=== PATIENT | male | born 1945 | race Asian ===

== ENCOUNTER 2020-08-31 10:18 | Inpatient (IN) ==
--- NOTE | 2020-08-27 15:10 | Anesthesiology Consultation ---
Date of Service August 27, 2020 Assessment & Plan (1) Encounter for pre-operative examination: Chart Review Chart Review: Acceptable Risk for Surgery and Patient NOT seen in Pre Admission Testing Per nursing assessment 08/27/2020, patient denies any recent travel. No known Covid infection in the past 90 days. Patient is vaccinated for Covid. No known Covid positive contacts or Covid related symptoms. Covid test 08/27/20= negative History Surgery Operation Date: 08/31/20 12:20 Proposed Procedures p Cystolithotomy ( Bladder Stone Fragmentation and Removal ) - Omar Muñoz MD Height/Weight Height: 5 ft 3 in Weight: 65.771 kg Allergies Allergy/AdvReac Type Severity Reaction Status Date / Time sulfamethoxazole AdvReac Unknown Heavy chest Verified 08/27/20 14:20 [From Bactrim] trimethoprim [From Bactrim] AdvReac Unknown Heavy chest Verified 08/31/20 10:44 Medications Home Medications Medication Instructions Recorded Confirmed Last Taken fgrwffwzeuif-jfpm-umlxv acid 1 tab PO QAM 01/13/19 08/31/20 08/30/20 13:00 [Centrum Complete] tamsulosin 0.4 mg capsule 0.4 mg PO HS #90 cap 07/13/20 08/31/20 08/30/20 20:00 finasteride 5 mg PO 1300 08/27/20 08/31/20 08/30/20 13:00 Active Medications Generic Name Dose Route Start Last Admin Trade Name Freq PRN Reason Stop Dose Admin Lactated Ringer's 1,000 mls @ 15 mls/hr 08/31/20 06:00 08/31/20 11:19 Lr IV 09/01/20 05:59 15 mls/hr .Q24H KAYDEN Administration Past Medical History Medical History Bladder stone CKD (chronic kidney disease) per record Enlarged prostate Past Family History Family History Other No family history of adverse response to anesthesia No pertinent family history Denies family history of Ovarian cancer Prostate cancer Breast cancer Lung cancer Colorectal cancer Past Surgical History Surgical History History of cataract surgery Social History Smoking Status: Never smoker Do You Dip or Chew Tobacco: No Hx Alcohol Use: No Hx Substance Use: No substance use type: does not use Physical Exam Vital Signs Last Vital Signs Temp 36.7 C 08/31/20 10:56 Pulse 84 08/31/20 10:56 Resp 20 08/31/20 10:56 BP 143/101 H 08/31/20 10:56 Pulse Ox 97 08/31/20 10:56 Lab Results Anesthesia Preop Results Results Anesthesia Widget: WBC 6.49 K/uL (4.8-10.8) 08/27/20 Hgb 12.9 g/dL (14.0-18.0) L 08/27/20 Hct 38.7 % (42-52) L 08/27/20 Plt 196 K/uL (130-400) 08/27/20 Na 141 mmol/L (136-145) 08/27/20 K 3.4 mmol/L (3.5-5.1) L 08/27/20 Cl 111 mmol/L (98-107) H 08/27/20 CO2 26 mmol/L (21-32) 08/27/20 BUN 24 mg/dl (7-18) H 08/27/20 Creat 1.14 mg/dl (0.6-1.4) 08/27/20 Glucose Level 96 mg/dl (70-99) 08/27/20 SARS-CoV-2, RNA, NAAT NEGATIVE (NEGATIVE) 08/31/20 Testing Laboratory Results 08/27/20= URINE CULTURE: Three types of organisms present, all low counts probable skin caren. Electrocardiogram Date: 08/27/20 Findings: + NSR @ (76bpm) Normal EKG per cardio Chest X-Ray Date: 08/27/20 Findings: + NAD The cardiac silhouette is top normal in size. This remains unchanged. A few linear densities within the lingula favor scarring or subsegmental atelectasis. Otherwise, no focal lung consolidations to suggest pneumonia. No evidence for pulmonary edema. No pleural effusions. No pneumothorax. A mildly tortuous thoracic aorta, unchanged.
[~2020-08-31 10:18] MED LIST: CIPROFLOXACIN / D5W 400 MG/200 ML BAG IV SCH; LR 15ML/HR IV SCH
[2020-08-31] MEDS ORDERED: fentaNYL citrate 100 MCG/2 ML VIAL ONE ×2 (12:03→13:30)
[2020-08-31] MEDS ORDERED: MIDAZOLAM HCL 1 MG/ML 2ML VIAL ONE (12:03)
[2020-08-31] MEDS ORDERED: LIDOCAINE 2% 2 ML VIAL/AMP(20MG/ML) INFIL ONE ×4 (12:03→12:21)
[2020-08-31] MEDS ORDERED: PROPOFOL IV EMULSION 10 MG/ML 20 ML VIAL IV ONE ×2 (12:04→12:21)
[2020-08-31] MEDS ORDERED: ONDANSETRON INJ 2 MG/ML 2 ML VIAL ONE ×2 (12:04→12:21)
[2020-08-31] MEDS ORDERED: ATROPINE SULFATE 0.1 MG/ML 10ML SYR IV PRN (12:38)
[2020-08-31] MEDS ORDERED: ONDANSETRON INJ 2 MG/ML 2 ML VIAL IV PRN (12:38)
[2020-08-31] MEDS ORDERED: LABETALOL HCL IV 5 MG/ML 20ML IV PRN (12:38)
[2020-08-31] MEDS ORDERED: fentaNYL citrate 100 MCG/2 ML VIAL IV PRN (12:38)
--- NOTE | 2020-08-31 12:45 | History & Physical Report ---
Date of Service August 31, 2020 Assessment & Plan (1) Bladder stone: 25+ bladder calculi - plan for open lithalopaxy today - overnight stay in the hospital - will keep a catheter x 10days - risks, benefits, and expectations reviewed History of Present Illness Primary Care Provider: Tian Bonilla DO 74y/o male w/ 25+ bladder calculi and severe voiding dysfunction - BPH is the underlying cause of the issues, but he presents to the hospital today for open lithalopaxy - likely will require a second surgery (TURP) in the future to complete the treatment of his voidin dysfunction Allergies Allergy/AdvReac Type Severity Reaction Status Date / Time sulfamethoxazole AdvReac Unknown Heavy chest Verified 08/27/20 14:20 [From Bactrim] trimethoprim [From Bactrim] AdvReac Unknown Heavy chest Verified 08/31/20 10:44 Home Medications Medication Instructions Recorded Confirmed Type fgozzapkaoda-olay-lwlpg acid 1 tab PO QAM 01/13/19 08/31/20 History [Centrum Complete] tamsulosin 0.4 mg capsule 0.4 mg PO HS #90 cap 07/13/20 08/31/20 Rx finasteride 5 mg PO 1300 08/27/20 08/31/20 History Past Med/Surg History Medical History Bladder stone CKD (chronic kidney disease) per record Enlarged prostate Surgical History History of cataract surgery Family History Other No family history of adverse response to anesthesia No pertinent family history Denies family history of Ovarian cancer Prostate cancer Breast cancer Lung cancer Colorectal cancer Social History Smoking Status: Never smoker Second Hand Exposure: No; Do You Dip or Chew Tobacco: No; Hx Alcohol Use: No Hx Substance Use: No Preferred Language: Georgian Communication Ability: Effective Visual Impairment: Limited Hearing Ability: Normal Machine Try Out Setter Required: No Beliefs That Will Affect Care: None marital status: Current Living Situation: Spouse current occupational status: retired Feels Safe at Home: Yes Safety Concerns: Feels Safe At This Time Childhood Exposure to Second-Hand Smoke: No caffeine: No Dental Care, Regularly: No Physical Activity Frequency: Does not Exercise Seatbelt Use: always Sunscreen Use: No Assistive Devices: Glasses Physical Exam Constitutional: well developed and well nourished Neck: neck nontender Respiratory: normal respiratory effort; no respiratory distress and does not use accessory muscles Cardiovascular: Rate/Rhythm: regular rate Vessels: radial pulses present Extremities: no edema Gastrointestinal (Abdomen): Inspection/Auscultation: abdomen normal to inspection Percussion/Palpation: abdomen soft; abdomen nontender and no guarding Musculoskeletal: Head/Neck/Chest: normocephalic and head atraumatic Extremities: extremities normal to inspection Skin: no rashes and no lesions Trauma: no evidence of skin trauma Neurologic: awake; not obtunded Speech / Cognition: normal speech Motor/Sensory: no tremor Psychiatric: Orientation: alert and oriented x 3 Genitourinary: no CVA tenderness Lymphatic: no lymphadenopathy Results & Data ([facility]) Vital Signs (Past 12 Hours) Vital Signs Temp Pulse Resp BP Pulse Ox 08/31/20 10:56 36.7 C 84 20 143/101 H 97
[2020-08-31] MEDS ORDERED: BUPIVACAINE 0.5 % 5 MG/1 ML MPF 30ML VIAL ONE (12:47)
[2020-08-31] MEDS ORDERED: DEXAMETHASONE SOD INJ 4 MG/ML VIAL ONE (13:30)
[2020-08-31] MEDS ORDERED: GLYCOPYRROLATE 0.2 MG/ML VIAL ONE ×2 (14:03→14:04)
[2020-08-31] MEDS ORDERED: NEOSTIGMINE METHYLSULFATE 1 MG/ML 10ML VIAL ONE (14:03)
--- NOTE | 2020-08-31 14:50 | Operative Report ---
PG Post Operative Report Pre & Post Diagnosis Operation Date: 08/31/20 12:20 Pre-Op Diagnosis: Bladder Stone Post-Op Diagnosis: Bladder Stone I identified the patient and participated in the time-out.: Yes Procedure Operation Date: 08/31/20 12:20 Actual Procedures p Open Lithalopaxy(Not Applicable) - Omar Muñoz MD Surgeon Bebo Muñoz MD Chainstitch Pants Outseamer Bella Phoenix Estimated Blood Loss 15 Findings Consistent with Post-Op Diagnosis Specimens bladder calculi Description of Procedure Patient was identified in the preoperative holding area, appropriate informed consents reviewed and completed and he was transported to the operating suite. Upon arrival received appropriate preoperative antibiotics in the form of Cipro. Adequate general anesthesia was achieved and he was placed in supine position where sterilely prepped and draped in standard fashion. An 18 Uzbek coud catheter was inserted on the field. Of note, we attempted to fill the bladder but his bladder had limited capacity and he was noted to be draining urine around the catheter. I marked a low midline incision beginning at the pubic symphysis and extending for approximately 6 cm in a cephalad direction. We incised through the skin and superficial tissues until identified the midline of the rectus muscles. We divided this and opened further. This skeletonized the anterior surface of the dome of the bladder. Bladder stones and catheter were palpable through the bladder wall. Utilizing a wheat [place] retractor we held tissue out of the way as we opened the dome of the bladder. Immediately we could I identify numerous yellow appearing round calculi. In total 80 calculi were removed from the bladder. After confirming that all stones have been in removed. I irrigated the bladder copiously and placed a new catheter. I then began closure in multiple layers. The first layer was closed utilizing a 2-0 chromic suture through the mucosal tissue. I then imbricated the muscular layers over this mucosal closure utilizing a 0 Vicryl stitch. I tested the closure and saw no evidence of leak. We then began to reapproximate the rectus fascia utilizing 0 Ethibond sutures in [id number] fashion. Subcutaneous tissues were reapproximated utilizing 2-0 Vicryl. The skin was closed with a 4-0 Monocryl. Of note, the muscular layers and skin layers were infiltrated with half percent Marcaine prior to closure. Dermabond was placed across the incision and the case was concluded. He was extubated and taken to the PACU in stable condition. There were no complications. Stones were passed off the table for chemical analysis. Bella Phoenix assisted from incision to closure. I attest to the content of the Intraoperative Record and any orders documented therein. Any exceptions are noted below.
--- NOTE | 2020-08-31 15:23 | Anesthesiology Progress Note ---
Date of Service August 31, 2020 Anesthesia Post Procedure Vital Signs Vital Signs: Temp Pulse Pulse Resp BP Pulse Ox 08/31/20 15:15 75 18 110/73 95 08/31/20 15:05 65 12 113/69 95 08/31/20 14:55 71 11 L 106/67 94 08/31/20 14:47 36.4 C L 72 21 103/68 96 08/31/20 10:56 36.7 C 84 20 143/101 H 97 Transfer of Care Handoff Completed per policy Notes Mental Status: alert / awake / arousable Patient Amnestic to Procedure: Yes Nausea / Vomiting: adequately controlled Pain: adequately controlled Airway Patency, RR, SpO2: stable & adequate BP & HR: stable & adequate Hydration State: stable & adequate Anesthetic Complications: no major complications apparent
[2020-08-31] MEDS: LACTATED RINGER'S 1,000 ML IV SCH (15:45)
[2020-08-31] MEDS ORDERED: traMADol HCL 50 MG TABLET PO PRN ×2 (15:54)
[2020-08-31] MEDS ORDERED: IBUPROFEN 600 MG TAB PO PRN (15:54)
[2020-08-31] MEDS: ceFAZolin 2000MG 2,000 MG/15 ML SYR IV SCH (19:52)
[2020-08-31] MEDS ORDERED: TAMSULOSIN HCL 0.4 MG CAP PO SCH (21:00)
[2020-08-31] MEDS: ACETAMINOPHEN 500 MG TAB PO PRN (22:21)
[2020-09-01] MEDS: ceFAZolin 2000MG 2,000 MG/15 ML SYR IV SCH (04:15)
[2020-09-01] MEDS: LACTATED RINGER'S 1,000 ML IV SCH (06:15)
[2020-09-01 06:43] LABS: Hematocrit (blood only) 35.7 % (42-52); Hemoglobin 11.7 g/dL (14.0-18.0); Immature Granulocytes # (auto) 0.02 K/uL (0.00-0.02); Immature Granulocytes % (auto) 0.2 %; Lymphocytes # (auto) 0.97 K/uL (1.2-3.4); Lymphocytes % (auto) 8.6 %; Mean Corpuscular Hemoglobin 28.6 pg (25-34); Mean Corpuscular Hgb Conc 32.8 g/dL (32-36); Mean Corpuscular Volume 87.3 fL (80-100); Mean Platelet Volume 11.1 fL (7.4-10.4); Monocytes # (auto) 0.89 K/uL (0.11-0.59); Monocytes % (auto) 7.9 %; Neutrophils # (auto) 9.44 K/uL (1.4-6.5); Neutrophils % (auto) 83.3 %; Platelet Count 182 K/uL (130-400); RDW Coefficient of Variation 13.2 % (11.5-14.5); RDW Standard Deviation 42.6 fL (36.4-46.3); Red Blood Count 4.09 M/uL (4.7-6.1); White Blood Count 11.32 K/uL (4.8-10.8)
[2020-09-01 07:17] LABS: BUN Creatinine Ratio 18.4 (10-20); Calcium 8.9 mg/dl (8.5-10.1); Creatinine Clr Calc Pharmacy 44.4 ml/min; Est GFR (African American) 62.7 ml/min; Est GFR (Non-African American) 54.1 ml/min; Potassium 3.9 mmol/L (3.5-5.1)
--- NOTE | 2020-09-01 08:26 | Urology Progress Note ---
Date of Service September 01, 2020 Assessment & Plan (1) Bladder stone: s/p lithalopaxy - doing very well - labs stable - ambulate, consider PT consult (2) Enlarged prostate: Admission and Anticipated Discharge Date Admission Date: August 31, 2020 Subjective doing very well after his open lithalopaxy no pain has not really ambulated yet urine clearing labs stable Physical Exam Physical Exam: urine clear Constitutional: well developed and well nourished Respiratory: no respiratory distress Cardiovascular: Extremities: no pedal edema Gastrointestinal (Abdomen): Inspection/Auscultation: abdomen normal to inspection Results & Data ([facility]) Vital Signs (Past 12 Hours) Vital Signs Temp Pulse Resp BP Pulse Ox 09/01/20 06:34 37 C 93 H 20 105/66 97 08/31/20 22:24 36.8 C 90 18 119/73 96 PG Care Time/CCT Total # of Minutes Spent Total Time Spent with Patient: Total time spent is greater than 50% in c oordination of care (as documented) at patient's floor/unit and/or counseling patient: Coding Level of Care Code 54669 Subseq Hosp Care Lvl 2 Diagnoses Bladder stone N21.0 Enlarged prostate N40.0
[2020-09-01] MEDS ORDERED: FINASTERIDE 5 MG TAB PO SCH (13:00)
[2020-09-01] MEDS: ACETAMINOPHEN 500 MG TAB PO PRN (13:33)
--- NOTE | 2020-09-02 07:32 | Discharge Summary ---
Date of Service September 02, 2020 Admission HPI Per Admitting Provider 74y/o male w/ 25+ bladder calculi and severe voiding dysfunction - BPH is the underlying cause of the issues, but he presents to the hospital today for open lithalopaxy - likely will require a second surgery (TURP) in the future to complete the treatment of his voidin dysfunction Principal Diagnosis Bladder calculi Discharge Data Allergies Allergy/AdvReac Type Severity Reaction Status Date / Time sulfamethoxazole AdvReac Unknown Heavy chest Verified 08/27/20 14:20 [From Bactrim] trimethoprim [From Bactrim] AdvReac Unknown Heavy chest Verified 08/31/20 10:44 Procedures Performed Operation Date: 08/31/20 12:20 Actual Procedures p Open Lithalopaxy(Not Applicable) - Omar Muñoz MD Hospital Course (1) Bladder stone: Patient was admitted and underwent open litholapaxy for 80 bladder stones. Tolerated the procedure well. Catheter was left in place and he was taken to the floor postoperatively. He progressed appropriately overnight with labs stable. He was ambulatory and tolerating a diet. He was discharged on postoperative day #1 in stable condition. (2) Enlarged prostate: Total Time Total Time Spent Total Time Spent (In Minutes): 15 Discharge Plan Discharge Items Patient Disposition: Home - Self-Care Reason For Visit: Bladder Stone Discharge Diagnosis: Bladder stone Activity: Per Instructions section Lifting: No more than 25 pounds Bathing Comment: Ok to shower after discharge. No tub baths or soaks. Sexual Activity: Wait until after follow-up appointment Exercise/Sports: Wait until after follow-up appointment Driving/Machine Use: Do not drive while taking prescription pain medication. Non-emergency contact: Surgeon and Urologist Call non-emergency contact if: you have any medication questions, your pain is not controlled, you have a fever, your temperature is above 101, your wound has increased redness, your wound has increased drainage and your wound pain has increased Follow-up/Referrals: Omar Muñoz MD [Physician] - (Office will call to schedule apt) Tian Bonilla DO [Primary Care Provider] - 09/08/20 11:20 am Diet: Regular Addtl Attending Provider Instructions: Please take all medications as prescribed. Please call our office at [phone] with any questions, concerns or need to reschedule appointments for any reason. We are happy to assist you. The Urology office will contact you with your follow-up appointments. Tips for your recovery at home: Dont be alarmed by brownish or reddish blood or clots in your urine. This is a result of the procedure. However, if this does not improve after 1 week, please contact our office. Drink plenty of fluids during the day (enough to keep your urine very light colored). This will help keep a healthy flow of urine. Do not lift >25 lbs until your followup Avoid constipation. Please use a stool softener (Colace) for the first two weeks after your procedure Be sure to finish the antibiotics as prescribed. If you go home with a catheter, please wash tubing where it enters your body twice daily with mild soap (Dove or Dial). Once your catheter is removed, expect some blood in your urine and some burning when you urinate. You should have an appointment to have this removed, if you do not please call our office to arrange. When to call [facility] at [phone]: Your urine contains heavy blood clots You are constantly leaking urine Fever of 101F or higher, chills, nausea, or vomiting Your pain is not relieved with medication Pending Studies at Discharge: Yes Stand-Alone Forms: My [facility], Opioid Pain Management, Smoking Cessation Medications and DC Order Prescriptions: New ciprofloxacin HCl 500 mg tablet 500 mg PO BID 3 Days Qty: 6 RF: 0 docusate sodium [Colace] 100 mg capsule 100 mg PO BID Qty: 60 RF: 0 oxycodone-acetaminophen [Percocet] 5-325 mg tablet 1 tab PO Q8H PRN (Reason: pain) Qty: 7 RF: 0 Continued tamsulosin 0.4 mg capsule 0.4 mg PO HS Qty: 90 RF: 3 Centrum Complete 18-400 mg-mcg Tablet 1 tab PO QAM RF: 0 finasteride 5 mg tablet 5 mg PO 1300 RF: 0 Discharge Orders: Discharge Order (Routine); Ordered 09/01/20 Ordered By: Lisset Cruz/Other Patient Handouts: Indwelling Urinary Catheter Dc, Discharge Instructions Caring for ... Admission Data Admit Date/Time: 08/31/20 15:07 Attending Provider: Omar Muñoz Admit Provider: Omar Muñoz Primary Care Provider: Tian Bonilla Other Interventions: Discharge Summary Assessment (RN) Last Done: 09/01/20 15:33 Coding Level of Care Code D/C DAY MANAGEMENT <30 MINS Diagnoses Bladder stone N21.0 Enlarged prostate N40.0
[2020-09-05 05:11] LABS: Component 2 DNR; Source BLADDER STONE
== END 2020-09-01 18:23 | disposition home or self-care (01) | DRG 664 ==
LOC: ASU 10:18 → 3N 15:07

== ENCOUNTER 2022-04-17 15:30 | Inpatient (IN) ==
[2022-04-17] MEDS ORDERED: ONDANSETRON INJ 2 MG/ML 2 ML VIAL IV STA (15:56)
[2022-04-17] MEDS ORDERED: SODIUM CHLORIDE 0.9% 1000ML 1,000 ML IV SCH ×2 (16:00→21:29)
--- NOTE | 2022-04-17 16:20 | Emergency Department Note ---
Impression & Plan SHOAIB (acute kidney injury), Bladder stones, Anemia, Vomiting, Hydronephrosis ED Provider Note NAME: VIOLET LAM AGE: 76 SEX: M : 1945 ARRIVES VIA: Walk-In INFORMANT: [Patient][daughter] ED PROVIDER(S): [Omar Barreto MD] CHIEF COMPLAINT: Vomiting, abdominal pain HISTORY OF PRESENT ILLNESS: The patient is a 76-year-old male who presents with 3 days of vomiting and abdominal pain. He feels quite bloated and his abdomen seems distended. No fever reported. No cough or congestion or respiratory complaints. He has not had a bowel movement in 2 days, he states he has not moved his urine in 2 days. The patient's family did contact the family doctor's office today, they were referred to the ED for a work-up and care. The patient has had surgical work on his bladder to remove bladder stones. He states that he was told that he would need his prostate removed in the future. He states, he has never worn a Mancilla catheter. PMHx/PSHx: See Below SOCIAL HISTORY: See Below. PHYSICAL EXAM: GENERAL: Patient is in no acute distress. HEENT: No acute trauma, normocephalic atraumatic, mucous membranes moist, no nasal congestion. NECK: No stridor, no adenopathy, no meningismus, trachea is midline. LUNGS: Clear to auscultation bilaterally, no wheeze, no rhonchi, breath sounds equal. HEART: Without murmurs gallops or rubs, regular rate and rhythm. ABDOMEN: Soft, bowel sounds are hyperactive. There is tympany with percussion, the abdomen is distended. He has mild diffuse abdominal discomfort, no peritonitis. I cannot feel a distended bladder. EXTREMITIES: No cyanosis or edema, full range of motion of all the joints without pain or difficulty, no signs for acute trauma. NEUROLOGIC: Oriented x 3, no acute motor or sensory deficits, no focal weakness. SKIN: No rash, no jaundice, no diaphoresis. Groin: No scrotal erythema. DIFFERENTIAL DIAGNOSIS: Bowel obstruction, gastroenteritis, renal or liver failure, dehydration, urinary retention, UTI, among others. EMERGENCY DEPARTMENT COURSE/PROCEDURES: Prior/Outside records reviewed: None. ECG per my interpretation: Indication was abdominal pain and vomiting. The ECG shows a normal sinus rhythm with a rate of 78. There is a right bundle branch block. There is some baseline artifact and some nonspecific ST change. No ST elevation. No PVCs. The QTc is 476. Continuous Cardiac Monitoring per my interpretation: An order was placed for continuous cardiac monitoring. The monitor shows a rate of 62 with normal sinus rhythm. Critical Care Note: I have personally spent 41 minutes of critical care time in the direct management of this patient. This includes bedside care, interpretat ion of diagnostic studies, and testing, discussion with consultants, patient, and family members, and other required patient management activities. This 41 minutes is in excess of all separately billable procedures. MEDICAL DECISION MAKING: There is a moderate leukocytosis, this is likely consistent with his vomiting but certainly could also indicate infection. Patient was slightly anemic with a hemoglobin of 12.6. The patient carries a history of anemia. There is a normal platelet count. Renal panel testing shows acute kidney injury with a creatinine of 5.8. The potassium was normal. Calcium was high at 11.5. No concerning liver enzyme elevation. ECG shows a normal sinus rhythm, no ischemia. Cardiac enzyme testing x1 is not consistent with acute cardiac injury. COVID, influenza and RSV test were negative. Abdominal and pelvis CT shows bladder stones and bilateral hydronephrosis. No bowel obstruction. There was some debris seen in the right ureter suggestive of a column of stone fragments, the left ureter did not contain any obvious stones. Urinalysis result is currently pending. On exam, the patient had some abdominal distention but no peritonitis. He was not febrile or toxic. Patient received IV saline, 2 L. He was given IV Zofran for nausea. He received IV ceftriaxone for empiric antibiotic coverage. A Mancilla catheter was p laced to monitor urine output. The nursing staff was able to confirm proper catheter placement with catheter irrigation. Patient is in acute renal failure. He is dehydrated. He will require a hosp ital stay. I did speak with Dr. Meier of urology. No emergent urologic intervention needed this evening. I spoke with the patient and case management, I spoke with his daughter, the on- call hospitalist has been consulted. DISPOSITION: The patient's presentation and findings warrant a hospital stay. Past Med/Surg History Medical History CKD (chronic kidney disease) Encounter for pre-operative examination Enlarged prostate Surgical History (Updated 12/28/21 @ 11:19 by Tian Bonilla DO) H/O colonoscopy 06/2021 no further testing History of cataract surgery LEFT Family History Other No family history of adverse response to anesthesia No pertinent family history Denies family history of Ovarian cancer Prostate cancer Breast cancer Lung cancer Colorectal cancer Social History Smoking Status: Never smoker Second Hand Exposure: No; Hx Alcohol Use: No Hx Substance Use: No Preferred Language: Luxembourgish Communication Ability: Effective Visual Impairment: Limited Hearing Ability: Normal Bolt Man Required: No Beliefs That Will Affect Care: None marital status: Current Living Situation: Spouse and Family current occupational status: retired Feels Safe at Home: Yes Childhood Exposure to Second-Hand Smoke: No caffeine: No Dental Care, Regularly: No Physical Activity Frequency: Does not Exercise Seatbelt Use: always Sunscreen Use: No Assistive Devices: None Allergies Allergies Allergy/AdvReac Type Severity Reaction Status Date / Time No Known Allergies Allergy Verified 12/28/21 10:59 Home Meds Home Medications Medication Instructions Recorded Confirmed multivitamin-ferrous 1 tab PO QAM 01/13/19 04/17/22 fumarate-folic acid 18 mg-400 mcg tablet (Centrum Complete) saw palmetto 450 mg capsule 450 mg PO DAILY 11/29/20 04/17/22 Previous Rx's Medication Instructions Recorded finasteride 5 mg tablet 5 mg PO DAILY #90 tabs 05/18/21 tamsulosin 0.4 mg capsule 0.4 mg PO HS #90 caps 05/18/21 rosuvastatin 5 mg tablet (Crestor) 5 mg PO DAILY #90 tabs 01/10/22 Results & Data (ED) Vital Signs Vital Signs - 24 hr 04/17/22 15:37 04/17/22 16:16 04/17/22 18:59 Temperature 36.6 C Temperature Source Temporal Artery Scan Pulse Rate 78 62 Pulse Rate [Apical] 59 L Pulse Rhythm [Apical] Regular Pulse Strength [Apical] Normal Respiratory Rate 20 17 Respiratory Effort / Characteristics Non-Labored Non-Labored Spontaneous Respiratory Depth Normal Normal Respiratory Pattern Regular Blood Pressure 167/98 H Blood Pressure [Right Arm] 154/82 H Blood Pressure Mean 121 Blood Pressure Mean [Right Arm] 106 Blood Pressure Position [Right Arm] Sitting Pulse Oximetry 92 95 Oxygen Delivery Method Room Air Room Air Sepsis Recent Fever Within 48 Hours No Sepsis New/Unexplained Change in Mental Status N/A Sepsis Action Taken by Nursing No Action Required 04/17/22 20:12 04/17/22 20:15 Temperature Temperature Source Pulse Rate 58 L 59 L Pulse Rate [Apical] Pulse Rhythm [Apical] Pulse Strength [Apical] Respiratory Rate 18 Respiratory Effort / Characteristics Respiratory Depth Respiratory Pattern Blood Pressure 143/82 H Blood Pressure [Right Arm] Blood Pressure Mean 102 Blood Pressure Mean [Right Arm] Blood Pressure Position [Right Arm] Pulse Oximetry 94 Oxygen Delivery Method Room Air Sepsis Recent Fever Within 48 Hours Sepsis New/Unexplained Change in Mental Status Sepsis Action Taken by [facility] Medications Current Medication List: was personally reviewed by me Laboratory Data Attestation: I reviewed the patient's lab results. 04/17/22 16:11 04/17/22 16:11 Lab Results 04/17/22 04/17/22 04/17/22 Range/Units 16:11 16:11 16:22 WBC 14.71 H (4.8-10.8) K/ul RBC 4.44 L (4.70-6.10) M/uL Hgb 12.6 L (14.0-18.0) g/dl Hct 36.9 L (42.0-52.0) % MCV 83.1 (80.0-100.0) fL MCH 28.4 (25.0-34.0) pg MCHC 34.1 (32.0-36.0) g/dL RDW Std Deviation 37.6 (36.4-46.3) fL RDW Coeff of Lauren 12.4 (11.5-14.5) % Plt Count 195 (130-400) K/uL MPV 11.3 (9.4-12.4) fL Immature Gran % (Auto) 0.3 % Neut % (Auto) 86.3 % Lymph % (Auto) 6.3 % Gallia % (Auto) 6.9 % Eos % (Auto) 0.0 % Baso % (Auto) 0.2 % Neut # (Auto) 12.70 H (1.40-6.50) K/uL Lymph # (Auto) 0.93 L (1.2-3.4) K/uL Gallia # (Auto) 1.01 H (0.11-0.59) K/uL Eos # (Auto) 0.00 (0-0.50) K/uL Baso # (Auto) 0.03 (0-0.2) K/uL Immature Gran # (Auto) 0.04 (0.01-0.20) K/uL Sodium 135 L (136-145) mmol/L Potassium 3.9 (3.5-5.1) mmol/L Chloride 102 (98-107) mmol/L Carbon Dioxide 22 (21-32) mmol/L Anion Gap 11 (3-11) BUN 48 H (6-23) mg/dl Creatinine 5.80 H* (0.6-1.4) mg/dl Est Cr Clr Drug Dosing 10.0 ml/min Est GFR ( Amer) 10.1 ml/min Est GFR (Non-Af Amer) 8.8 ml/min BUN/Creatinine Ratio 8.3 L (10-20) Glucose 111 H (70-99(Fasting)) mg/dl Calcium 11.5 H (8.5-10.1) mg/dl Magnesium 2.0 (1.7-2.4) mg/dl Total Bilirubin 1.2 H (0.2-1.0) mg/dl AST 22 (13-39) U/L ALT 16 (7-52) U/L Alkaline Phosphatase 57 (34-104) U/L Troponin I High Sens 8.9 (0-20) pg/ml Total Protein 7.8 (6.0-8.3) gm/dl Albumin 4.3 (3.4-5.0) gm/dl Globulin 3.5 (2.5-4.0) gm/dl Albumin/Globulin Ratio 1.2 (0.9-2) SARS-CoV-2 (PCR) NEGATIVE (Negative) Influenza Type A (PCR) Negative (Neg) Influenza Type B (PCR) Negative (Neg) RSV (RT-PCR) Negative (Neg) Administered Medications Discontinued Medications Sodium Chloride (Nss 1000ml) 1,000 mls @ 999 mls/hr IV .Q1H1M KAYDEN Stop: 04/17/22 17:00 Last Infusion: 04/17/22 18:45 Dose: 0 mls/hr Documented By: Admin: 04/17/22 16:14 Dose: 999 mls/hr Documented By: MARIE Sodium Chloride (Nss 1000ml) 1,000 mls @ 999 mls/hr IV .Q1H1M ONE Stop: 04/17/22 19:07 Last Infusion: 04/17/22 19:48 Dose: 0 mls/hr Documented By: Admin: 04/17/22 18:45 Dose: 999 mls/hr Documented By: MARIE Ceftriaxone Sodium (Rocephin) 2,000 mg in 70 mls @ 140 mls/hr IV NOW STA Stop: 04/17/22 19:20 Last Infusion: 04/17/22 19:42 Dose: 0 mls/hr Documented By: Admin: 04/17/22 19:09 Dose: 140 mls/hr Documented By: QUE Sodium Chloride (Nss 1000ml) 500 mls @ 999 mls/hr IV .Q31M ONE Stop: 04/17/22 20:14 Last Admin: 04/17/22 20:09 Dose: 999 mls/hr Documented By: QUE Lidocaine HCl (Lidocaine 2% Jelly 5 Ml Tube) 6 ml EXT NOW ONE Stop: 04/17/22 17:45 Last Admin: 04/17/22 18:26 Dose: 6 ml Documented By: MARIE Ondansetron HCl (Ondansetron Inj 2 Mg/Ml 2 Ml Vial) 4 mg IV NOW STA Stop: 04/17/22 15:57 Last Admin: 04/17/22 16:14 Dose: 4 mg Documented By: MARIE Imaging Data Radiologist's Impression: Abdomen/Pelvis CT 04/17/22 17:[address] WITHOUT CONTRAST CT DOSE: 402.04 mGy.cm HISTORY: Acute generalized abdominal pain abdominal pa TECHNIQUE: Multiaxial CT images of the abdomen and pelvis were performed without contrast. A dose lowering technique was utilized adhering to the principles of ALARA. COMPARISON STUDY: CT 10/12/2019 FINDINGS: Mild cardiomegaly. Trace left and small right pleural effusions with mild bibasilar atelectasis. No pneumatosis or pneumoperitoneum. The unenhanced spleen, pancreas, contracted gallbladder and adrenal glands are unremarkable. Mild hepatic steatosis. There are a few nonobstructing calculus of the right kidney measuring up to 5 mm. 9 mm nonobstructing calculus of the inferior pole left kidney. Moderate bilateral hydroureteronephrosis. Hyperdense material within the mid right ureter suggestive of a column of stone fragments measures up to 1.8 cm in length. No left ureteral calculi identified. Partially decompressed urinary bladder with wall thickening and perivesicular stranding. Numerous large urinary bladder calculi are again noted measuring up to 3.7 cm. Prostamegaly. Small fat filled left inguinal hernia. No abdominal aortic aneurysm or lymphadenopathy. No bowel obstruction or bowel wall thickening. Moderate fecal retention of the right hemicolon. Nonvisualization of the appendix. Unremarkable soft tissues. No acute fracture. Degenerative changes of the spine, pelvis and hips. IMPRESSION: 1. Moderate bilateral hydronephrosis with numerous large urinary bladder calculi redemonstrated. 2. Prostamegaly with findings suggestive of chronic bladder outlet obstruction. Correlate with urinalysis to exclude cystitis. 3. Hyperdense material within the mid right ureter measuring up to 1.8 cm in length suggestive of a column of stone fragments. 4. Trace left and small right pleural effusions. 5. No bowel obstruction or bowel wall thickening. ACT 112: Negative or not required by law. The above report was generated using voice recognition software. It may contain grammatical, syntax or spelling errors. Electronically signed by: John Rios M.D. 04/17/2022 5:42 PM Discharge Plan Visit Data Chief Complaint: Vomiting Stated Complaint: VOMITING,UNABLE TO URINATE ED Provider: Omar Barreto Discharge Problem: SHOAIB (acute kidney injury), Bladder stones, Anemia, Vomiting, Hydronephrosis Patient Disposition: Admitted As Inpatient Condition: Fair Forms Stand Alone Forms: My [facility] Prescriptions Prescriptions: No Action rosuvastatin [Crestor] 5 mg tablet 5 mg PO DAILY Qty: 90 3RF saw palmetto 450 mg capsule 450 mg PO DAILY Rx Instructions: give with food (meal/snack) tamsulosin 0.4 mg capsule 0.4 mg PO HS Qty: 90 3RF Rx Instructions: Take one capsule at bedtime. finasteride 5 mg tablet 5 mg PO DAILY Qty: 90 3RF Patient Comments: 1 PM Centrum Complete 18-400 mg-mcg Tablet 1 tab PO QAM Referrals Referrals: Tian Bonilla DO [Primary Care Provider] - Anemia Qualifiers: Anemia type: unspecified type Qualified Code(s): D64.9 - Anemia, unspecified Vomiting Qualifiers: Vomiting type: unspecified Nausea presence: with nausea Qualified Code(s): R11.2 - Nausea with vomiting, unspecified Hydronephrosis Qualifiers: Hydronephrosis type: unspecified Qualified Code(s): N13.30 - Unspecified hydronephrosis
[2022-04-17 16:43] LABS: Basophils # (auto) 0.03 K/uL (0-0.2); Basophils % (auto) 0.2 %; Hematocrit (blood only) 36.9 % (42.0-52.0); Hemoglobin 12.6 g/dl (14.0-18.0); Immature Granulocytes # (auto) 0.04 K/uL (0.01-0.20); Immature Granulocytes % (auto) 0.3 %; Lymphocytes # (auto) 0.93 K/uL (1.2-3.4); Lymphocytes % (auto) 6.3 %; Mean Corpuscular Hemoglobin 28.4 pg (25.0-34.0); Mean Corpuscular Hgb Conc 34.1 g/dL (32.0-36.0); Mean Corpuscular Volume 83.1 fL (80.0-100.0); Mean Platelet Volume 11.3 fL (9.4-12.4); Monocytes # (auto) 1.01 K/uL (0.11-0.59); Monocytes % (auto) 6.9 %; Neutrophils % (auto) 86.3 %; Platelet Count 195 K/uL (130-400); RDW Coefficient of Variation 12.4 % (11.5-14.5); RDW Standard Deviation 37.6 fL (36.4-46.3); Red Blood Count 4.44 M/uL (4.70-6.10); White Blood Count 14.71 K/ul (4.8-10.8)
[2022-04-17 17:01] LABS: Albumin Globulin Ratio 1.2 (0.9-2); Albumin Level 4.3 gm/dl (3.4-5.0); BUN Creatinine Ratio 8.3 (10-20); Bilirubin,Total 1.2 mg/dl (0.2-1.0); Calcium 11.5 mg/dl (8.5-10.1); Est GFR (African American) 10.1 ml/min; Est GFR (Non-African American) 8.8 ml/min; Globulin 3.5 gm/dl (2.5-4.0); Potassium 3.9 mmol/L (3.5-5.1); Total Protein 7.8 gm/dl (6.0-8.3)
[2022-04-17 17:08] LABS: Troponin I High Sensitivity 8.9 pg/ml (0-20)
[2022-04-17 17:11] LABS: Influenza A virus by PCR Negative (Neg); Influenza B virus by PCR Negative (Neg); RSV by PCR Negative (Neg); SARS CoV2 RNA(COVID-19) Ceph NEGATIVE (Negative)
[2022-04-17] MEDS ORDERED: LIDOCAINE 2% JELLY 5 ML TUBE EXT ONE (17:44)
--- NOTE | 2022-04-17 17:44 | CT Scan Report ---
ABDOMEN AND PELVIS CT WITHOUT CONTRAST CT DOSE: 402.04 mGy.cm HISTORY: Acute generalized abdominal pain abdominal pa TECHNIQUE: Multiaxial CT images of the abdomen and pelvis were performed without contrast. A dose lo wering technique was utilized adhering to the principles of ALARA. COMPARISON STUDY: CT 10/12/2019 FINDINGS: Mild cardiomegaly. Trace left and small right pleural effusions with mild bibasilar atelect asis. No pneumatosis or pneumoperitoneum. The unenhanced spleen, pancreas, contracted gallbladder and adrenal glands are unremarkable. Mild hepatic steatosis. There are a few nonobstructing calculus of the right kidney measuring up to 5 mm. 9 mm nonobstructing calculus of the inferior pole left kidney. Moderate bilateral hydroureteronephrosis. Hyperdense mate rial within the mid right ureter suggestive of a column of stone fragments measures up to 1.8 cm in l ength. No left ureteral calculi identified. Partially decompressed urinary bladder with wall thickeni ng and perivesicular stranding. Numerous large urinary bladder calculi are again noted measuring up t o 3.7 cm. Prostamegaly. Small fat filled left inguinal hernia. No abdominal aortic aneurysm or lympha denopathy. No bowel obstruction or bowel wall thickening. Moderate fecal retention of the right hemicolon. Nonvi sualization of the appendix. Unremarkable soft tissues. No acute fracture. Degenerative changes of th e spine, pelvis and hips. IMPRESSION: 1. Moderate bilateral hydronephrosis with numerous large urinary bladder calculi redemonstrated. 2. Prostamegaly with findings suggestive of chronic bladder outlet obstruction. Correlate with urinal ysis to exclude cystitis. 3. Hyperdense material within the mid right ureter measuring up to 1.8 cm in length suggestive of a c olumn of stone fragments. 4. Trace left and small right pleural effusions. 5. No bowel obstruction or bowel wall thickening. ACT 112: Negative or not required by law. The above report was generated using voice recognition software. It may contain grammatical, syntax o r spelling errors. Electronically signed by: John Rios M.D. 04/17/2022 5:42 PM
[2022-04-17] MEDS ORDERED: SODIUM CHLORIDE 0.9% 1000ML 1,000 ML IV ONE (18:07)
--- NOTE | 2022-04-17 18:49 | History & Physical Report ---
Date of Service April 17, 2022 Assessment & Plan (1) SHOAIB (acute kidney injury): Plan: Patient is a 76 yo male with PMHx of bladder calculi, BPH, and hyperlipidemia admitted to [facility] on 04/17/22 due to SHOAIB, most likely obstructive secondary to bladder calculi. SHOAIB, Bladder Calculi, BPH with LUTS - Baseline Cr 1.1; Cr on admission is 5.8 - Most likely due to obstructive process of bladder calculi and BPH - CT abd/pelvis 04/17/22: Moderate b/l hydronephrosis w/ numerous large urinary bladder calculi (measuring up to 3.7 cm). Prostamegaly w/ findings suggestive of chronic bladder outlet obstruction. Hyperdense material within the mid right ureter measuring up to 1.8cm in length suggestive of a column of stone fragments. - Mckeon catheter placed, monitor strict Is/Os - Pt has received 2.5 L IVF; continue w/ NSS at 125 cc/hr - Urology consulted -- agree w/ mckeon catheter, monitoring Is/Os, and consideration for cystoscopy w/ possible ureteral stent placement - Maintain NPO status - Continue home finasteride and tamsulosin - Recheck BMP in AM Leukocytosis - WBC 14.71, ? reactive vs urinary source - Received 2g Ceftriaxone IV on admission - Will defer further abx therapy pending result of UA/urology recommendations - UA and urine cx pending - Recheck CBC in AM Hyperlipidemia - Continue home statin COVID negative on admission FENGI: NPO, IVF with NSS @ 125 cc/hr Code Status: Full code Dispo: Admit to med/surg (2) Bladder stones: (3) Hydronephrosis: (4) Hyperlipidemia: (5) Benign localized prostatic hyperplasia with lower urinary tract symptoms (LUTS): History of Present Illness Primary Care Provider: Tian Bonilla DO Patient is a 76 yo male with PMHx of hyperlipidemia, bladder stones, and BPH who presented to the hospital due to n/v, abd pain, and urinary retention. Patient has hx of bladder stones requiring prior open lithalopaxy w/ removal of 80 bladder calculi in August 2020. He has been following with urology (last visit 11/23/21) and at that time, plan was for ? future TURP due to his BPH w/ LUTS. Patient presented to the ER today due to nausea/vomiting x3 days, progressive abdominal distension x2 days, urinary retention x2 days, and constipation x2 days. He also reports associated decreased appetite. Patient denies fever, chills, CP, SOB, العراقي, lightheadedness, dizziness, LE swelling, focal weakness, or any other symptoms. In the ER -- Labs reveal: WBC 14.71, hgb 12.6, hct 36.9, Na 135, BUN 48, Cr 5.8 CT Abd/Pelvis findings include: Moderate b/l hydronephrosis w/ numerous large urinary bladder calculi (measuring up to 3.7 cm). Prostamegaly w/ findings suggestive of chronic bladder outlet obstruction. Hyperdense material within the mid right ureter measuring up to 1.8cm in length. Meds/IVF received: Zofran 4mg IV, NSS 2L, and Ceftriaxone 2mg Allergies Allergy/AdvReac Type Severity Reaction Status Date / Time No Known Allergies Allergy Verified 12/28/21 10:59 Home Medications Medication Instructions Recorded Confirmed Type multivitamin-ferrous 1 tab PO QAM 01/13/19 04/17/22 History fumarate-folic acid 18 mg-400 mcg tablet (Centrum Complete) saw palmetto 450 mg capsule 450 mg PO DAILY 11/29/20 04/17/22 History finasteride 5 mg tablet 5 mg PO DAILY #90 tabs 05/18/21 04/17/22 Rx tamsulosin 0.4 mg capsule 0.4 mg PO HS #90 caps 05/18/21 04/17/22 Rx rosuvastatin 5 mg tablet (Crestor) 5 mg PO DAILY #90 tabs 01/10/22 04/17/22 Rx Past Med/Surg History Medical History CKD (chronic kidney disease) Encounter for pre-operative examination Enlarged prostate Surgical History H/O colonoscopy 06/2021 no further testing History of cataract surgery LEFT Family History Other No family history of adverse response to anesthesia No pertinent family history Denies family history of Ovarian cancer Prostate cancer Breast cancer Lung cancer Colorectal cancer Social History Smoking Status: Never smoker Second Hand Exposure: No; Do You Dip or Chew Tobacco: No; Hx Alcohol Use: No Hx Substance Use: No Preferred Language: Malawian Communication Ability: Effective Visual Impairment: Limited Hearing Ability: Normal Materials Intern Required: No Beliefs That Will Affect Care: None marital status: Current Living Situation: Family current occupational status: retired Other Information That Helps Us Care for You: No Feels Safe at Home: Yes Safety Concerns: Feels Safe At This Time Childhood Exposure to Second-Hand Smoke: No caffeine: No Dental Care, Regularly: No Physical Activity Frequency: Does not Exercise Seatbelt Use: always Sunscreen Use: No Assistive Devices: None Review of Systems Review of Systems: See HPI Physical Exam Physical Exam: GENERAL: No acute distress. Well developed and well nourished. Vital signs reviewed as above. EYES: PERRLA. EOMI. Anicteric sclerae. HENT: Moist mucous membranes. No pharyngeal erythema or exudates. RESPIRATORY: Clear to auscultation bilaterally. No wheezing, rales, or rhonchi. CARDIOVASCULAR: Regular rate and rhythm. No murmurs. ABDOMEN: Mild abd distension. Diffuse tenderness to palpation most prominent at umbilicus and suprapubic regions. + bowel sounds. EXTREMITIES: No edema. Non-tender. SKIN: Warm, dry. NEUROLOGIC: A/O x3. Normal speech. No focal neurological deficits. 5/5 strength in BUE and BLE. PSYCHIATRIC: Cooperative. Appropriate mood and affect. Results & Data Results & Data ([facility]) Vital Signs (Past 12 Hours) Vital Signs Temp Pulse Resp BP Pulse Ox O2 Del Method 04/17/22 16:16 62 04/17/22 15:37 36.6 C 78 20 167/98 H 92 Room Air Laboratory Results 04/17/22 04/17/22 04/17/22 Range/Units 16:22 16:11 16:11 WBC 14.71 H (4.8-10.8) K/ul RBC 4.44 L (4.70-6.10) M/uL Hgb 12.6 L (14.0-18.0) g/dl Hct 36.9 L (42.0-52.0) % MCV 83.1 (80.0-100.0) fL MCH 28.4 (25.0-34.0) pg MCHC 34.1 (32.0-36.0) g/dL RDW Std Deviation 37.6 (36.4-46.3) fL RDW Coeff of Lauren 12.4 (11.5-14.5) % Plt Count 195 (130-400) K/uL MPV 11.3 (9.4-12.4) fL Immature Gran % (Auto) 0.3 % Neut % (Auto) 86.3 % Lymph % (Auto) 6.3 % [place] % (Auto) 6.9 % Eos % (Auto) 0.0 % Baso % (Auto) 0.2 % Neut # (Auto) 12.70 H (1.40-6.50) K/uL Lymph # (Auto) 0.93 L (1.2-3.4) K/uL [place] # (Auto) 1.01 H (0.11-0.59) K/uL Eos # (Auto) 0.00 (0-0.50) K/uL Baso # (Auto) 0.03 (0-0.2) K/uL Immature Gran # (Auto) 0.04 (0.01-0.20) K/uL Sodium 135 L (136-145) mmol/L Potassium 3.9 (3.5-5.1) mmol/L Chloride 102 (98-107) mmol/L Carbon Dioxide 22 (21-32) mmol/L Anion Gap 11 (3-11) BUN 48 H (6-23) mg/dl Creatinine 5.80 H* (0.6-1.4) mg/dl Est Cr Clr Drug Dosing 10.0 ml/min Est GFR ( Amer) 10.1 ml/min Est GFR (Non-Af Amer) 8.8 ml/min BUN/Creatinine Ratio 8.3 L (10-20) Glucose 111 H (70-99(Fasting)) mg/dl Calcium 11.5 H (8.5-10.1) mg/dl Magnesium 2.0 (1.7-2.4) mg/dl Total Bilirubin 1.2 H (0.2-1.0) mg/dl AST 22 (13-39) U/L ALT 16 (7-52) U/L Alkaline Phosphatase 57 (34-104) U/L Troponin I High Sens 8.9 (0-20) pg/ml Total Protein 7.8 (6.0-8.3) gm/dl Albumin 4.3 (3.4-5.0) gm/dl Globulin 3.5 (2.5-4.0) gm/dl Albumin/Globulin Ratio 1.2 (0.9-2) SARS-CoV-2 (PCR) NEGATIVE (Negative) Influenza Type A (PCR) Negative (Neg) Influenza Type B (PCR) Negative (Neg) RSV (RT-PCR) Negative (Neg) Diagnostic Findings [place], [place] [phone] CT Scan Report Patient:VIOLET LAM Admit Date:04/17/22 MR#:[id number] Address1:[address] [place] [address] Acct ID:[id number] Address2: Date:1945 [facility] Zip:[place] [address] Age:76 Location:ED Sex:M Room/Bed: Att Phy: Diagnosis:VOMITING,UNABLE TO URINATE Shannon Phy:Tian Bonilla DO Service Date:04/17/22 Fam Phy: Interpreting Phy:John RiosAdmhansel Phy: Ordering Phy:Omar Barreto M.D. cc: ~ ABDOMEN AND PELVIS CT WITHOUT CONTRAST CT DOSE: 402.04 mGy.cm HISTORY: Acute generalized abdominal pain abdominal pa TECHNIQUE: Multiaxial CT images of the abdomen and pelvis were performed without contrast. A dose lowering technique was utilized adhering to the principles of ALARA. COMPARISON STUDY: CT 10/12/2019 FINDINGS: Mild cardiomegaly. Trace left and small right pleural effusions with mild bibasilar atelectasis. No pneumatosis or pneumoperitoneum. The unenhanced spleen, pancreas, contracted gallbladder and adrenal glands are unremarkable. Mild hepatic steatosis. There are a few nonobstructing calculus of the right kidney measuring up to 5 mm. 9 mm nonobstructing calculus of the inferior pole left kidney. Moderate bilateral hydroureteronephrosis. Hyperdense material within the mid right ureter suggestive of a column of stone fragments measures up to 1.8 cm in length. No left ureteral calculi identified. Partially decompressed urinary bladder with wall thickening and perivesicular stranding. Numerous large urinary bladder calculi are again noted measuring up to 3.7 cm. Prostamegaly. Small fat filled left inguinal hernia. No abdominal aortic aneurysm or lymphadenopathy. No bowel obstruction or bowel wall thickening. Moderate fecal retention of the right hemicolon. Nonvisualization of the appendix. Unremarkable soft tissues. No acute fracture. Degenerative changes of the spine, pelvis and hips. IMPRESSION: 1. Moderate bilateral hydronephrosis with numerous large urinary bladder calculi redemonstrated. 2. Prostamegaly with findings suggestive of chronic bladder outlet obstruction. Correlate with urinalysis to exclude cystitis. 3. Hyperdense material within the mid right ureter measuring up to 1.8 cm in length suggestive of a column of stone fragments. 4. Trace left and small right pleural effusions. 5. No bowel obstruction or bowel wall thickening. ACT 112: Negative or not required by law. The above report was generated using voice recognition software. It may contain grammatical, syntax or spelling errors. Electronically signed by: John Rios M.D. 04/17/2022 5:42 PM Dictated:04/17/221731 Transcribed: 04/17/221731 Supervising Physician Co-Signing Physician Notes I personally saw and examined the patient. I verified all cardenas points and agree with resident physician Dr Annie Luna, with the following exceptions and/or additions: 76 year old male nausea, vomiting, abdominal pain, urine retention. He has not urinated for the last 24 hours. No bowel movement for the last [address] scan in the ER shows extensive bladder stones. No urine output after Mckeon catheter placed in the emergency room and flushed successfully. O/E HS RRR, no murmurs, Chest CTAB, Abdo - suprapubic tenderness, no CVA tenderness A/P Acute kidney injury - suspect due to obstructive uropathy. Since the Mckeon catheter has not relieved the obstruction suspect the obstruction is due to has bladder stones pressing on each ureter individually. Discussed with Dr. Meier and since no urine output after 2.5 L of normal saline planning on taking to the operating room tonight to see if we can relieve this obstruction. We discussed nephrostomy tubes however will trial relief of obstruction at this time with intravenous fluids and surgery for stones but if no improvement he may need to be transferred for nephrostomy tubes. IV fluids. Cover for infection with ceftriaxone. NPO. consult urology. Resident Activity Tracking Resident Involvement: Resident Care Provided Care Provided: Adult Hospital Medicine (3) Hydronephrosis Hydronephrosis type: unspecified Qualified Code(s): N13.30 - Unspecified hydronephrosis
[2022-04-17] MEDS ORDERED: cefTRIAXone SODIUM 2,000 MG/70 ML BAG IV STA (18:51)
[2022-04-17] MEDS ORDERED: SODIUM CHLORIDE 0.9% 1000ML 500 ML IV ONE (19:44)
--- NOTE | 2022-04-17 20:44 | Urology Consultation ---
Date of Consultation April 17, 2022 Assessment & Plan (1) SHOAIB (acute kidney injury): Patient is being admitted on the hospitalist service. I did speak with the hospitalist service. Mancilla catheter has been placed for accurate measurement of patient's I's and O's. We are going to resuscitate the patient with intravenous fluids and if his urine output does not cigar packer and picker consideration will be given to taking the patient urgently to the operating room this evening for cystoscopy with possible ureteral stent placement. The patient notes that he has not had anything to eat or drink by mouth since approximate 2:00 PM. I have asked him to remain n.p.o. if his urine output does not cigar packer and picker within the next hour as stated above he will likely require a trip to the operating room as stated above. I discussed directly with the hospital service and asked them to directly communicate with my attending physician Dr. Meier about the patient's urine output. Additional recommendations will be made based on his clinical course as it unfolds (2) Hydronephrosis: Plan Attending note: Patient independently assessed, evaluated, examined, and interviewed. Extensively discussed the findings with patient. Patient had developed significant issues with low urine output. Has a long complex history of bladder outlet obstruction. Had previously undergone extraction of bladder stones due to large amount of stones within the bladder. Patient has considerable bladder outlet obstruction issues. Had previously followed with Dr. Almaraz but subsequently follow-up with Dr. Muñoz. Patient developed worsening lower urinary tract issues and inability to void and pressure. Was dealing with discomfort. Patient was evaluated. Underwent CT scan for possible retention and work-up for other issues. Patient found to have a massive amount of large bladder stones throughout the bladder. The entire bladder was filled in with stones with very minimal room otherwise. The bladder did not appear to be overly distended but did have such a large quantity of stones it was difficult to fully determine. Patient appeared to have debris or small stones within the ureters bilaterally. The ureters did not appear to be obstructing at the site of the stone and had hydroureter bilaterally from the bladder all the way up to the renal pelvis likely due to reflux of urine into the kidneys from the obstructive bladder. Patient has been having pain discomfort coming in waves comes and goes. Patient had undergone CT scan which was reviewed interpreted by myself. See my findings as above. Concern for obstructive issues of the kidneys and bladder with likely bladder neck being the main source of obstruction. Patient had limited urine output. Had a catheter placed by the ER and continues to have very minimal urine output. The catheter is able to be flushed and does not appear to be obstructed. Patient is not having considerable leaking around the catheter. Initially plan was to allow patient hydration and time to see if this will fix or improve the SHOAIB however patient continued to not make urine through the initial assessment in the ER. After discussion with the hospitalist team and coordination with Dr. Perez and the hospice team patient was admitted and is undergoing IV therapy with hydration. Patient did not produce a considerable amount of urine over the first hours of the admission. Due to concern for possible upper tract obstruction as well possible stent placements were considered. Also had considered possible transfer for possible nephrostomy tubes. This is still a consideration especially if stent placement is unable to be completed. Patient is currently NPO. Vitals are largely stable. Does have some mild bradycardia however this is likely his baseline. No tachypnea. Temperatures have been within a normal range without fever. Patient has been on dual therapy including a herbal medicine as well. His current creatinine is 5.8 which is drastically elevated above his baseline. White count is mildly elevated at 14.7. Patient had undergone a COVID test which is negative. Extensively reviewed different options. Patient has a extremely large stone burden in the bladder causing likely considerable obstructive issues with his already obstructing prostate. Does appear to have possible stones within the prostatic urethra as well though these may be prostatic calcifications. Has continued to have minimal urine output though the catheter is easily flushed. Due to findings of significant hydroureter with multiple areas of debris versus stone within the ureter though these are probably due to reflux did discuss possible option for cystoscopy. Reviewed extensively different options. Discussed possible evacuation of debris and possible removal of some of the stones if able to be flushed free. Discussed bilateral retrograde pyelograms with possible stent placement. Discussed upstaging the catheter to a larger diameter in order to facilitate better drainage. Did discuss extensively the po ssibility that this may be renal failure due to chronic obstructive issues. The an area may be due to overall kidney damage over time due to long-term chronic obstruction issues. Did discuss this as a potential possibility however due to the very likely obstructive nature of the basis of his major problems at this point likely moving forward with maximal drainage with bilateral stents and large Mancilla catheter will be a reasonable step to see if this will also help improve renal function. We will plan to continue with hydration and monitor the patient. Risks and benefits discussed at length for procedure. These include bleeding, infection, injury to surrounding tissues or organs, and risks associated with anesthesia. Patient states understanding and agrees to proceed. Will sign consent and proceed. Due to the minimal urine output/anuria this would be an urgent/emergent intervention with significant risk to life or limb with possibility of ongoing renal damage due to reflux and long-term obstruction with low urine output. Plan for cystoscopy possible bilateral retrograde pyelogram and stents History of Present Illness Reason for Consultation: Acute kidney injury with bilateral hydronephrosis History of Present Illness This is a 76-year-old male who presented to the emergency department secondary to 3 days of generalized abdominal pain along with vomiting. Patient notes that his abdomen feels bloated and distended. He denies any fevers, shakes, or chills. He denies any diarrhea. He notes that he has had some issues with constipation over the past few days not having a bowel movement approximately 2 days. He says he has also been having difficulty urinating over the past 2 days. He contacted his family physician's office where he was referred to the emergency department for further evaluation. It is noteworthy to mention that the patient does follow with [facility] physician group urology, Dr. Mark herring. Dr. Muñoz did have to perform an open litholapaxy most recently on 08/31/2020. At this time a total of approximately 80 renal calculi were removed from the bladder. Since arrival to the hospital the patient has had labs and imaging which I independent reviewed. CT scan of the abdomen pelvis showed bilateral hydronephrosis with numerous large urinary bladder calculi noted. Patient was noted to have findings consistent with prostamegaly and findings consistent with chronic bladder outlet obstruction. There is hyperdense material within the right mid ureter measuring up to 1.8 cm in length which was suggestive of a column of stone fragments. Labs include a CBC her white blood cell count was 14.7. Hemoglobin and hematocrit were 12.6 and 36.9. Platelet count was 195,000. Chemistry profile showed sodium is 135 with a normal potassium. His BUN and creatinine were 48 and 5.8. (Patient's labs were reviewed and his creatinine usually runs within the normal range) magnesium was 2.0. There is no elevation of patient's LFTs other than a slight elevation of his total bilirubin at 1.2. Patient was tested for COVID, influenza a and B, and RSV all of which were negative. At the time of my interview the patient was resting comfortably in bed he was in no distress. Allergies Allergy/AdvReac Type Severity Reaction Status Date / Time No Known Allergies Allergy Verified 12/28/21 10:59 Home Medications Medication Instructions Recorded Confirmed Type multivitamin-ferrous 1 tab PO QAM 01/13/19 04/17/22 History fumarate-folic acid 18 mg-400 mcg tablet (Centrum Complete) saw palmetto 450 mg capsule 450 mg PO DAILY 11/29/20 04/17/22 History finasteride 5 mg tablet 5 mg PO DAILY #90 tabs 05/18/21 04/17/22 Rx tamsulosin 0.4 mg capsule 0.4 mg PO HS #90 caps 05/18/21 04/17/22 Rx rosuvastatin 5 mg tablet (Crestor) 5 mg PO DAILY #90 tabs 01/10/22 04/17/22 Rx Patient History Medical History CKD (chronic kidney disease) Encounter for pre-operative examination Enlarged prostate Surgical History H/O colonoscopy 06/2021 no further testing History of cataract surgery LEFT Family History Other No family history of adverse response to anesthesia No pertinent family history Denies family history of Ovarian cancer Prostate cancer Breast cancer Lung cancer Colorectal cancer Social History Smoking Status: Never smoker Second Hand Exposure: No; Do You Dip or Chew Tobacco: No; Hx Alcohol Use: No Hx Substance Use: No Preferred Language: Ukrainian Communication Ability: Effective Visual Impairment: Limited Hearing Ability: Normal Mh Teacher Required: No Beliefs That Will Affect Care: None marital status: Current Living Situation: Family current occupational status: retired Other Information That Helps Us Care for You: No Feels Safe at Home: Yes Safety Concerns: Feels Safe At This Time Childhood Exposure to Second-Hand Smoke: No caffeine: No Dental Care, Regularly: No Physical Activity Frequency: Does not Exercise Seatbelt Use: always Sunscreen Use: No Assistive Devices: None Review of Systems Constitutional: no fever and no chills Eyes: no eye pain Ear, Nose, Mouth, Throat: no ear pain Respiratory: no cough and no dyspnea Cardiovascular: no chest pain Gastrointestinal: + abdominal pain, + nausea, + vomiting and + constipation Genitourinary: + as per Subjective / HPI Musculoskeletal: no back pain Integumentary: no rash Neurologic: no localized weakness Physical Exam Constitutional: well developed and well nourished; no acute distress Eyes: no conjunctival abnormality ENMT: Ears: no hearing impairment and no external ear abnormality Mouth: no oropharynx abnormality Neck: trachea midline Respiratory: normal respiratory effort; no respiratory distress and no labored breathing Cardiovascular: Rate/Rhythm: regular rate and regular rhythm Gastrointestinal (Abdomen): Abdomen is mildly distended with hypoactive bowel sounds. There is some tympany to percussion. There is no rebound tenderness or guarding. The abdomen is not rigid. There is minimal pain with palpation. Musculoskeletal: No calf tenderness Skin: no rashes Neurologic: moves all extremities Psychiatric: A+Ox3, euthymic affect Genitourinary: no CVA tenderness Results & Data ([facility]) Vital Signs (Past 12 Hours) Vital Signs Temp Pulse Pulse Resp BP BP Pulse Ox 04/17/22 20:15 59 L 04/17/22 20:12 58 L 18 143/82 H 94 04/17/22 18:59 59 L 17 154/82 H 95 04/17/22 16:16 62 04/17/22 15:37 36.6 C 78 20 167/98 H 92 O2 Del Method 04/17/22 20:15 04/17/22 20:12 Room Air 04/17/22 18:59 Room Air 04/17/22 16:16 04/17/22 15:37 Room Air PG Care Time/CCT Total # of Minutes Spent Total Time Spent with Patient: Total time spent is greater than 50% in coordination of care (as documented) at patient's floor/unit and/or counseling patient: Coding Level of Care Code 61795 INT INP/OBS CARE 3/75MIN Diagnoses SHOAIB (acute kidney injury) N17.9 Hydronephrosis N13.30 Hydronephrosis type: unspecified (2) Hydronephrosis Hydronephrosis type: unspecified Qualified Code(s): N13.30 - Unspecified hydronephrosis
[2022-04-17 21:27] LABS: Partial Thromboplastin Ratio 0.9; Partial Thromboplastin Time 25.5 Seconds (21.0-31.0)
[2022-04-17] MEDS ORDERED: ONDANSETRON INJ 2 MG/ML 2 ML VIAL IV PRN (21:29)
[2022-04-17] MEDS ORDERED: ACETAMINOPHEN 325 MG TAB PO PRN (21:29)
[2022-04-17] MEDS: TAMSULOSIN HCL 0.4 MG CAP PO SCH (22:16)
[2022-04-17] MEDS: POLYETHYLENE (MIRALAX) 17 GM PACK PO SCH (22:17)
[2022-04-17] MEDS ORDERED: Flu Vaccine-High Dose (Fluzone-HD) PF 65+ 0.7mL SYR IM ONE (23:00)
[2022-04-18] MEDS ORDERED: ONDANSETRON INJ 2 MG/ML 2 ML VIAL IV PRN (00:54)
[2022-04-18] MEDS ORDERED: fentaNYL citrate 100 MCG/2 ML VIAL IV PRN (00:54)
[2022-04-18] MEDS ORDERED: ATROPINE SULFATE 0.1 MG/ML 10ML SYR IV PRN (00:54)
[2022-04-18] MEDS ORDERED: ePHEDrine sulfate 50 MG/ML AMP IV PRN (00:54)
--- NOTE | 2022-04-18 00:54 | Anesthesiology Consultation ---
Date of Service April 18, 2022 Assessment & Plan Chart Review Chart Review: Acceptable Risk for Surgery and Patient NOT seen in Pre Admission Testing Consults Requested none ASA [id number] Proposed Anesthesia Anesthesia Type: General Risk / Benefits Reviewed With: PT / POA / Parent / Guardian, Accepts Plan and Informed Consent Obtained History Surgery Operation Date: 04/17/22 23:00 Proposed Procedures p Ureteral Stent Insertion/Removal(Bilateral) - River Meier, DO Height/Weight Height: 5 ft 3 in Weight: 74.389 kg Allergies Allergy/AdvReac Type Severity Reaction Status Date / Time No Known Allergies Allergy Verified 12/28/21 10:59 Medications Home Medications Medication Instructions Recorded Confirmed Last Taken multivitamin-ferrous 1 tab PO QAM 01/13/19 04/17/22 07/10/21 fumarate-folic acid 18 mg-400 mcg tablet (Centrum Complete) saw palmetto 450 mg capsule 450 mg PO DAILY 11/29/20 04/17/22 07/10/21 finasteride 5 mg tablet 5 mg PO DAILY #90 tabs 05/18/21 04/17/22 07/10/21 tamsulosin 0.4 mg capsule 0.4 mg PO HS #90 caps 05/18/21 04/17/22 07/10/21 rosuvastatin 5 mg tablet (Crestor) 5 mg PO DAILY #90 tabs 01/10/22 04/17/22 Unknown Active Medications Generic Name Dose Route Start Last Admin Trade Name Freq PRN Reason Stop Dose Admin Sodium Chloride 1,000 mls @ 125 mls/hr 04/17/22 21:29 04/18/22 00:01 Nss 1000ml IV 04/18/22 13:28 0 mls/hr .Q8H KAYDEN Infusion Polyethylene Glycol 17 gm 04/17/22 21:29 04/17/22 22:17 Polyethylene (Miralax) 17 Gm Pack PO 05/17/22 21:28 Not Given BID KAYDEN Tamsulosin HCl 0.4 mg 04/17/22 21:29 04/17/22 22:16 Tamsulosin Hcl 0.4 Mg Cap PO 05/17/22 21:28 Not Given HS KAYDEN NPO Date Last Intake of Fluids: 04/17/22 Time Last Intake of Fluids: 14:30 Last Intake of Fluids Comment: Unknown Date Last Intake of Solids: 02/27/23 Time Last Intake of Solids: 14:30 Past Medical History Medical History CKD (chronic kidney disease) Encounter for pre-operative examination Enlarged prostate Exercise / Class Metabolic Activity II 4-5 Yardwork/Stairs/Walk up hill Past Family History Family History Other No family history of adverse response to anesthesia No pertinent family history Denies family history of Ovarian cancer Prostate cancer Breast cancer Lung cancer Colorectal cancer Past Surgical History Surgical History H/O colonoscopy 06/2021 no further testing History of cataract surgery LEFT Past Anesthesia History No Hx of Anesthesia Complications and No Family Hx of Anesthesia Complications History of PONV No Hx of PONV and No Hx of Motion Sickness Social History Smoking Status: Never smoker Do You Dip or Chew Tobacco: No Hx Alcohol Use: No Hx Substance Use: No substance use type: does not use Physical Exam Vital Signs Last Vital Signs Temp 37.3 C 04/17/22 22:24 Pulse 62 04/17/22 22:24 Resp 14 04/17/22 22:24 BP 149/75 H 04/17/22 22:24 Pulse Ox 94 04/17/22 22:24 O2 Del Method Room Air 04/17/22 22:24 ENMT Mouth: no dentition abnormality Thyromental Distance: > or= 3.5 Finger Breadths Mallampati Class: II Neck normal visual inspection Respiratory normal respiratory effort Auscultation: lungs clear to auscultation bilaterally Cardiovascular Rate/Rhythm: regular rate and regular rhythm Psychiatric Orientation: alert Testing Laboratory Results 04/17/22 16:11 04/17/22 16:11 PT 11.0 Seconds (9.0-12.0) 04/17/22 16:11 INR 1.0 (0.9-1.1) 04/17/22 16:11 APTT 25.5 Seconds (21.0-31.0) 04/17/22 16:11
[2022-04-18] MEDS ORDERED: fentaNYL citrate 100 MCG/2 ML VIAL ONE (01:04)
[2022-04-18] MEDS ORDERED: ceFAZolin 2000MG 2,000 MG/15 ML SYR IV STA (01:39)
[2022-04-18] MEDS ORDERED: DIATRIZOATE MEGLUMINE 30% 100ML VIAL INSTIL PRN (01:42)
[2022-04-18] MEDS ORDERED: PHENYLEPHRINE 100MCG/ML 5ML SYR ONE (01:52)
[2022-04-18] MEDS ORDERED: DEXAMETHASONE SOD INJ 4 MG/ML VIAL ONE (01:52)
[2022-04-18] MEDS ORDERED: PROPOFOL IV EMULSION 10 MG/ML 20 ML VIAL IV ONE (01:52)
[2022-04-18] MEDS ORDERED: LIDOCAINE 2% MPF LOCAL 5 ML VIAL INFIL ONE (01:52)
[2022-04-18] MEDS ORDERED: ONDANSETRON INJ 2 MG/ML 2 ML VIAL ONE (01:52)
--- NOTE | 2022-04-18 01:59 | Operative Report ---
PG Post Operative Report Pre & Post Diagnosis Operation Date: 04/17/22 23:00 Pre-Op Diagnosis: Bladder stones Post-Op Diagnosis: Bladder stones I identified the patient and participated in the time-out.: Yes Procedure Operation Date: 04/17/22 23:00 Actual Procedures p Cystoscopy with irrigation of bladder and bilateral retrograde pyelograms with bilateral Ureteral Stent Insertion(Bilateral) - River Meier DO Surgeon River Meier, II, DO Strapper None Estimated Blood Loss 1 Findings Consistent with Post-Op Diagnosis Stents placed in good position. Severe bilateral hydronephrosis with hydroureter. Severe edema of base of bladder with left side completely covered in bullous edema and bilateral ureteral orifices swollen and edematous. Numerous massive stones of bladder. Large amount of debris irrigated free. Specimens None Drains 7 Fr x 28 bilateral 22 Fr mckeon Anesthesia Type MAC Complications none Disposition Disposition: Recovery Room Indications Patient with obstruction with massive bladder stones and anuria. Risks and benefits discussed at length. Description of Procedure Patient was consented and brought back to the operating room. Patient was placed under anesthesia in the supine position and moved to the dorsal lithotomy position. Patient was prepped and draped in the regular sterile fashion. A time out was completed. A 30degree Cystoscope was placed into the bladder and the entire bladder was examined. The bladder was decompressed and completely filled with stones. A large amount of debris was irrigated from the base. Two very large stones were sitting on the base against the bladder neck. The trigone was severely swollen with bullous edema throughout and severe along the left. The UO's were identified within the swollen tissue. The left UO was difficult to access due to the bullous edema. Once the UO was better identified, multiple attempts to pass a catheter or wire would not make the turn/hook of the ureter. A Josias Catheter was selected and the UO was cannulized with the catheter and a retrograde pyelogram was completed. A wire w as then placed. Considerable manipulation was necessary to enter the renal pelvis. WIth the wire a large amount of debris started to drain. With the wire in place, a 7 Fr Double J stent was placed. It was confirmed with fluoroscopy. On the right the UO was more easily identified. A wire was able to be placed after considerable manipulation. A catheter was placed and retrograde pyelogram was completed. The 7 Fr stent was then placed on the right and confirmed with fluoroscopy. With the stent in place, the bladder was emptied and irrigated. Large amount of fluid was draining bilaterally. A large amount of debris was noted bilaterally. The bladder was inspected. Complete visualization was unable to be completed due to the large burden but no considerable issues or injuries. Light red urine was draining from the left UO. The bladder neck was also mildly increased in swelling and irritation. The scope was removed. A 22 Fr mckeon was placed. The patient was cleaned, aroused from anesthesia, and transferred to the pacu in stable condition having tolerated the procedure well with no complications. I was present and participated in all aspects of the procedure. The patient will be monitored in the PACU until transferred. Plan to maintain maximum drainage with bilateral stents and mckeon. Will likely need definitive treatment for prostate and massive stones. Will monitor for resolution of SHOAIB and obstruction. I attest to the content of the Intraoperative Record and any orders documented therein. Any exceptions are noted below.
--- NOTE | 2022-04-18 02:07 | Anesthesiology Progress Note ---
Date of Service April 18, 2022 Anesthesia Post Procedure Vital Signs Vital Signs: Temp Pulse Pulse Resp BP BP Pulse Ox 04/17/22 21:10 37.3 C 62 14 149/75 H 94 04/17/22 22:24 37.3 C 62 14 149/75 H 94 04/17/22 20:15 59 L 04/17/22 20:12 58 L 18 143/82 H 94 04/17/22 18:59 59 L 17 154/82 H 95 04/17/22 16:16 62 04/17/22 15:37 36.6 C 78 20 167/98 H 92 O2 Del Method 04/17/22 21:10 Room Air 04/17/22 22:24 Room Air 04/17/22 20:15 04/17/22 20:12 Room Air 04/17/22 18:59 Room Air 04/17/22 16:16 04/17/22 15:37 Room Air Pain Intensity Abdomen: Pain Intensity: 3 Transfer of Care Handoff Completed per policy Notes Mental Status: alert / awake / arousable Patient Amnestic to Procedure: Yes Nausea / Vomiting: adequately controlled Pain: adequately controlled Airway Patency, RR, SpO2: stable & adequate BP & HR: stable & adequate Hydration State: stable & adequate Anesthetic Complications: no major complications apparent
[2022-04-18 07:20] LABS: Hematocrit (blood only) 33.9 % (42.0-52.0); Hemoglobin 11.5 g/dl (14.0-18.0); Mean Corpuscular Hemoglobin 27.9 pg (25.0-34.0); Mean Corpuscular Hgb Conc 33.9 g/dL (32.0-36.0); Mean Corpuscular Volume 82.3 fL (80.0-100.0); Mean Platelet Volume 10.9 fL (9.4-12.4); Platelet Count 155 K/uL (130-400); RDW Coefficient of Variation 12.7 % (11.5-14.5); RDW Standard Deviation 38.3 fL (36.4-46.3); Red Blood Count 4.12 M/uL (4.70-6.10)
[2022-04-18 07:43] LABS: Albumin Globulin Ratio 1.2 (0.9-2); Albumin Level 3.6 gm/dl (3.4-5.0); BUN Creatinine Ratio 9.7 (10-20); Bilirubin,Total 0.5 mg/dl (0.2-1.0); Calcium 9.4 mg/dl (8.5-10.1); Creatinine Clr Calc Pharmacy 9.5 ml/min; Est GFR (African American) 9.6 ml/min; Est GFR (Non-African American) 8.3 ml/min; Potassium 4.3 mmol/L (3.5-5.1); Total Protein 6.6 gm/dl (6.0-8.3)
[2022-04-18 07:47] LABS: Basophils # (auto) 0.01 K/uL (0-0.2); Basophils % (auto) 0.1 %; Echinocytes 1+; Immature Granulocytes # (auto) 0.05 K/uL (0.01-0.20); Immature Granulocytes % (auto) 0.4 %; Lymphocytes # (auto) 0.54 K/uL (1.2-3.4); Lymphocytes % (auto) 4.4 %; Monocytes % (auto) 1.6 %; Neutrophils % (auto) 93.5 %
[2022-04-18] MEDS: LACTATED RINGER'S 1,000 ML IV SCH ×3 (08:25→23:31)
[2022-04-18] MEDS: ROSUVASTATIN CALCIUM 5 MG TAB PO SCH (08:32)
[2022-04-18] MEDS: POLYETHYLENE (MIRALAX) 17 GM PACK PO SCH ×2 (08:32→19:44)
[2022-04-18] MEDS: FINASTERIDE 5 MG TAB PO SCH (08:33)
--- NOTE | 2022-04-18 09:01 | Fluoroscopy Report ---
FL retrograde includes kub CLINICAL HISTORY: BILATERAL URETERAL STENTS COMPARISON STUDY: Abdomen and pelvis CT 04/17/2022. FLUOROSCOPY TIME: 50 seconds. FLUOROSCOPY IMAGES: 3 Ka,r: 12.4 mGy FINDINGS: Retrograde opacification of bilateral renal collecting systems with placement of bilateral ureteral stents. The ureteral stents appear and good position. IMPRESSION: Fluoroscopic assistance as above. ACT 112: Negative or not required by law. Electronically signed by: Etienne Henley M.D. 04/18/2022 8:59 AM
--- NOTE | 2022-04-18 10:09 | Electrocardiogram Report ---
Test Reason : Blood Pressure : / mmHG Vent. Rate : 078 BPM Atrial Rate : 078 BPM P-R Int : 186 ms QRS Dur : 122 ms QT Int : 418 ms P-R-T Axes : 030 -28 020 degrees QTc Int : 476 ms Normal sinus rhythm Possible Left atrial enlargement Right bundle branch block Abnormal ECG When compared with ECG of 27-AUG-2020 13:48, Right bundle branch block is now Present Confirmed by Maynor Ramos ([id number]) on 04/18/2022 10:09:23 AM Referred By: REFERRED SELF Confirmed By:Maynor Ramos
--- NOTE | 2022-04-18 10:53 | Urology Progress Note ---
Date of Service April 18, 2022 Assessment & Plan (1) Hydronephrosis: (2) Benign localized prostatic hyperplasia with lower urinary tract symptoms (LUTS): (3) Bladder stones: (4) SHOAIB (acute kidney injury): Plan: - Pt POD#0 s/p cystoscopy with irrigation of bladder and bilateral retrograde pyelogramsand bilateral ureteral stent placement - Subjectively doing well - Afebrile, lab work reviewed - creatinine increased to 6.06, WBC 12.40 - continue to trend labs - Urine culture pending - follow culture - Tolerating bilateral ureteral stents with minimal bother - Mancilla patent and draining appropriately with light red urine - maintain catheter for maximum drainage - Continue supportive care and management per primary team - will continue to follow Admission and Anticipated Discharge Date Admission Date: April 17, 2022 Subjective Patient seen and examined at bedside this morning. He is awake, alert and sitting up in bed eating breakfast. He denies flank or abdominal pain. No nausea or vomiting. Mancilla patent and draining light red urine. No fever or chills. Review of Systems Constitutional: as per Subjective / HPI Gastrointestinal: as per Subjective / HPI Genitourinary: + as per Subjective / HPI Physical Exam Constitutional: well developed and well nourished; no acute distress and not ill appearing Respiratory: normal respiratory effort; no respiratory distress and no labored breathing Gastrointestinal (Abdomen): Inspection/Auscultation: abdomen normal to inspection; abdomen not distended Psychiatric: Orientation: alert and oriented x 3 Genitourinary: Mancilla patent draining light red urine Results & Data ([facility]) Vital Signs (Past 12 Hours) Vital Signs Temp Pulse Pulse Resp BP Pulse Ox O2 Del Method 04/18/22 07:35 37.3 C 63 18 116/69 93 Room Air 04/18/22 05:49 37.1 C 63 14 112/69 93 Room Air 04/18/22 04:35 37.1 C 63 16 116/68 93 Room Air 04/18/22 03:40 37.7 C H 63 14 119/69 93 Room Air 04/18/22 03:08 36.9 C 61 18 115/70 92 Room Air 04/18/22 02:20 36.5 C 64 14 124/71 90 Room Air 04/18/22 02:10 67 14 122/70 91 Room Air 04/18/22 01:55 61 14 124/69 90 Room Air 04/18/22 01:35 62 17 122/72 90 Room Air 04/18/22 01:25 68 16 127/82 91 Room Air 04/18/22 01:15 64 18 130/72 90 Room Air 04/18/22 01:05 36.6 C 68 14 126/78 90 Room Air 04/18/22 01:55 36.5 C 65 17 124/75 92 Oxymask 04/18/22 02:32 37 C 66 14 123/70 91 Room Air O2 Flow Rate 04/18/22 07:35 04/18/22 05:49 04/18/22 04:35 04/18/22 03:40 04/18/22 03:08 04/18/22 02:20 04/18/22 02:10 04/18/22 01:55 04/18/22 01:35 04/18/22 01:25 04/18/22 01:15 04/18/22 01:05 04/18/22 01:55 2 04/18/22 02:32 PG Care Time/CCT Total # of Minutes Spent Total Time Spent with Patient: Total time spent is greater than 50% in coordination of care (as documented) at patient's floor/unit and/or counseling patient: Coding Level of Care Code 53511 SUB INP/OBS CARE 03/15MIN Diagnoses Hydronephrosis N13.30 Hydronephrosis type: unspecified Benign localized prostatic hyperplasia with lower urinary tract symptoms (LUTS) N40.1 Bladder stones N21.0 SHOAIB (acute kidney injury) N17.9 (1) Hydronephrosis Hydronephrosis type: unspecified Qualified Code(s): N13.30 - Unspecified hydronephrosis
[2022-04-18 11:12] LABS: Appearance Urine Turbid (Clear); Bacteria Urine Automated Negative (Negative); Bilirubin Urine Negative (Negative); Blood Urine 3+ (Negative); Color Urine Red; Epithelial Cell Urine Auto >30 /lpf (0-5); Glucose Urine UA Negative (Negative); Ketones Urine Negative (Negative); Leukocyte Esterase Urine 2+ (Negative); Nitrite Urine Positive (Negative); Protein Urine 3+ (Negative); Urobilinogen Urine Negative (Negative); WBC Urine Automated >30 /hpf (0-5)
[2022-04-18 12:06] LABS: RBC Urine Automated >30 /hpf (0-4)
[2022-04-18 12:07] LABS: Cast Urine Automated 0 /lpf (0-5)
--- NOTE | 2022-04-18 13:22 | Billing Data ---
Date of Service April 17, 2022 Coding Level of Care Code 33297 INT INP/OBS CARE
--- NOTE | 2022-04-18 14:15 | Hospitalist Progress Note ---
Date of Service April 18, 2022 Assessment & Plan (1) SHOAIB (acute kidney injury): Plan: 2nd to obstructive uropathy from numerous bladder stones, BPH, urethral orifice inflammation, etc. s/p cystoscopy yesterday with b/l ureteral stent placement. FeNa 4.3 c/w obstructive uropathy. u/a possibly c/w UTI - culture not sent - will send today. cont rocephin in meantime. cont finasteride cont flomax change IV fluids to LR from NS rechecked BMP late today and Creatinine has improved repeat BMP in am appreciate urology assistance will need Rx of bladder stones & BPH w/ TURP after discharge to prevent recurrent obstruction keep mckeon at discharge (2) Bladder stones: Plan: numerous recurrent has had intervention on such in the past will need definitive Rx post-d/c by [facility] [place] [facility] keep mckeon (3) Hydronephrosis: Plan: b/l s/p ureteral stents yesterday by [facility] [place] [facility] see #1 above (4) Hyperlipidemia: Plan: cont statin (5) Benign localized prostatic hyperplasia with lower urinary tract symptoms (LUTS): Plan: cont dual therapy with finasteride and flomax cont mckeon will need TURP in near future Plan DVT proph - if hematuria improves overnight then start heparin 5000 BID tomorrow recheck labs in am daughter extensively updated at bedside Admission and Anticipated Discharge Date Admission Date: April 17, 2022 Subjective patient lying comfortably in bed states he "feels better" less abdominal and suprapubic pain/discomfort able to eat/drink without nausea or emesis mckeon draining bloody urine daughter at bedside we discussed plan of care in great detail I showed them the CT of a/p showing the bladder stones Review of Systems Review of Systems: gen - no fevers cv - no chest pain pulm - no dyspnea GI - pain resolved Physical Exam Physical Exam: gen - NAD mouth - MMM neck - no JVD heart - RRR, s1 s2 lungs - CTA b/l abd - soft, NT, no flank tenderness to palpation b/l; BS+; no HSM ext - no edema, pulses 2+ b/l psych - awake/alert Results & Data Results & [facility] ([facility]) Vital Signs (Past 12 Hours) Vital Signs Temp Pulse Pulse Resp BP Pulse Ox O2 Del Method 04/18/22 10:50 37.5 C 64 16 113/68 93 Room Air 04/18/22 07:35 37.3 C 63 18 116/69 93 Room Air 04/18/22 05:49 37.1 C 63 14 112/69 93 Room Air 04/18/22 04:35 37.1 C 63 16 116/68 93 Room Air 04/18/22 03:40 37.7 C H 63 14 119/69 93 Room Air 04/18/22 03:08 36.9 C 61 18 115/70 92 Room Air 04/18/22 02:20 36.5 C 64 14 124/71 90 Room Air 04/18/22 02:32 37 C 66 14 123/70 91 Room Air Laboratory Results Laboratory Results - last 48 hr 04/17/22 04/17/22 04/17/22 16:11 16:11 16:11 WBC 14.71 H RBC 4.44 L Hgb 12.6 L Hct 36.9 L MCV 83.1 MCH 28.4 MCHC 34.1 RDW Std Deviation 37.6 RDW Coeff of Lauren 12.4 Plt Count 195 MPV 11.3 Immature Gran % (Auto) 0.3 Neut % (Auto) 86.3 Lymph % (Auto) 6.3 Dane % (Auto) 6.9 Eos % (Auto) 0.0 Baso % (Auto) 0.2 Neut # (Auto) 12.70 H Lymph # (Auto) 0.93 L Dane # (Auto) 1.01 H Eos # (Auto) 0.00 Baso # (Auto) 0.03 Immature Gran # (Auto) 0.04 Echinocytes PT 11.0 INR 1.0 APTT 25.5 PTT Ratio 0.9 Sodium 135 L Potassium 3.9 Chloride 102 Carbon Dioxide 22 Anion Gap 11 BUN 48 H Creatinine 5.80 H* Est Cr Clr Drug Dosing 10.0 Est GFR ( Amer) 10.1 Est GFR (Non-Af Amer) 8.8 BUN/Creatinine Ratio 8.3 L Glucose 111 H Calcium 11.5 H Magnesium 2.0 Total Bilirubin 1.2 H AST 22 ALT 16 Alkaline Phosphatase 57 Troponin I High Sens 8.9 Total Protein 7.8 Albumin 4.3 Globulin 3.5 Albumin/Globulin Ratio 1.2 Urine Color Urine Appearance Urine pH Ur Specific [place] Urine Protein Urine Glucose (UA) Urine Ketones Urine Blood Urine Nitrite Urine Bilirubin Urine Urobilinogen Ur Leukocyte Esterase Urine WBC (Auto) Urine RBC (Auto) U Hyaline Cast (Auto) U Epithel Cells (Auto) Urine Bacteria (Auto) Ur Renal Epithelial Cell Urine Yeast Ur Random Creatinine Ur Random Sodium SARS-CoV-2 (PCR) Influenza Type A (PCR) Influenza Type B (PCR) RSV (RT-PCR) 04/17/22 04/18/22 04/18/22 16:22 06:53 06:53 WBC 12.40 H RBC 4.12 L Hgb 11.5 L Hct 33.9 L MCV 82.3 MCH 27.9 MCHC 33.9 RDW Std Deviation 38.3 RDW Coeff of Lauren 12.7 Plt Count 155 MPV 10.9 Immature Gran % (Auto) 0.4 Neut % (Auto) 93.5 Lymph % (Auto) 4.4 Dane % (Auto) 1.6 Eos % (Auto) 0.0 Baso % (Auto) 0.1 Neut # (Auto) 11.60 H Lymph # (Auto) 0.54 L Dane # (Auto) 0.20 Eos # (Auto) 0.00 Baso # (Auto) 0.01 Immature Gran # (Auto) 0.05 Echinocytes 1+ PT INR APTT PTT Ratio Sodium 138 Potassium 4.3 Chloride 110 H Carbon Dioxide 19 L Anion Gap 9 BUN 59 H Creatinine 6.06 H* Est Cr Clr Drug Dosing 9.5 Est GFR ( Amer) 9.6 Est GFR (Non-Af Amer) 8.3 BUN/Creatinine Ratio 9.7 L Glucose 124 H Calcium 9.4 D Magnesium Total Bilirubin 0.5 D AST 23 ALT 13 Alkaline Phosphatase 46 Troponin I High Sens Total Protein 6.6 Albumin 3.6 Globulin 3.0 Albumin/Globulin Ratio 1.2 Urine Color Urine Appearance Urine pH Ur Specific [place] Urine Protein Urine Glucose (UA) Urine Ketones Urine Blood Urine Nitrite Urine Bilirubin Urine Urobilinogen Ur Leukocyte Esterase Urine WBC (Auto) Urine RBC (Auto) U Hyaline Cast (Auto) U Epithel Cells (Auto) Urine Bacteria (Auto) Ur Renal Epithelial Cell Urine Yeast Ur Random Creatinine Ur Random Sodium SARS-CoV-2 (PCR) NEGATIVE Influenza Type A (PCR) Negative Influenza Type B (PCR) Negative RSV (RT-PCR) Negative 04/18/22 04/18/22 04/18/22 10:40 14:30 16:46 WBC RBC Hgb Hct MCV MCH MCHC RDW Std Deviation RDW Coeff of Lauren Plt Count MPV Immature Gran % (Auto) Neut % (Auto) Lymph % (Auto) Dane % (Auto) Eos % (Auto) Baso % (Auto) Neut # (Auto) Lymph # (Auto) Dane # (Auto) Eos # (Auto) Baso # (Auto) Immature Gran # (Auto) Echinocytes PT INR APTT PTT Ratio Sodium 138 Potassium 4.0 Chloride 109 H Carbon Dioxide 20 L Anion Gap 9 BUN 61 H Creatinine 5.35 H* D Est Cr Clr Drug Dosing 10.8 Est GFR ( Amer) 11.2 Est GFR (Non-Af Amer) 9.7 BUN/Creatinine Ratio 11.4 Glucose 130 H Calcium 8.8 Magnesium Total Bilirubin AST ALT Alkaline Phosphatase Troponin I High Sens Total Protein Albumin Globulin Albumin/Globulin Ratio Urine Color Red Urine Appearance Turbid A Urine pH 5.0 Ur Specific [place] 1.010 Urine Protein 3+ H Urine Glucose (UA) Negative Urine Ketones Negative Urine Blood 3+ H Urine Nitrite Positive A Urine Bilirubin Negative Urine Urobilinogen Negative Ur Leukocyte Esterase 2+ H Urine WBC (Auto) >30 H Urine RBC (Auto) >30 H U Hyaline Cast (Auto) 0 U Epithel Cells (Auto) >30 H Urine Bacteria (Auto) Negative Ur Renal Epithelial Cell Not Reportable Urine Yeast Not Reportable Ur Random Creatinine 68.9 Ur Random Sodium 78 SARS-CoV-2 (PCR) Influenza Type A (PCR) Influenza Type B (PCR) RSV (RT-PCR) PG Care Time/CCT Total # of Minutes Spent Total Time Spent with Patient: Total time spent is greater than 50% in coordination of care (as documented) at patient's floor/unit and/or counseling patient: Coding Level of Care Code 49949 SUB INP/OBS CARE 2/35MIN Diagnoses SHOAIB (acute kidney injury) N17.9 Bladder stones N21.0 Hydronephrosis N13.30 Hydronephrosis type: unspecified Hyperlipidemia E78.5 Benign localized prostatic hyperplasia with lower urinary tract symptoms (LUTS) N40.1 (3) Hydronephrosis Hydronephrosis type: unspecified Qualified Code(s): N13.30 - Unspecified hydronephrosis
[2022-04-18 15:45] LABS: Creatinine Urine Random 68.9 mg/dl
[2022-04-18 17:51] LABS: BUN Creatinine Ratio 11.4 (10-20); Calcium 8.8 mg/dl (8.5-10.1); Creatinine Clr Calc Pharmacy 10.8 ml/min; Est GFR (African American) 11.2 ml/min; Est GFR (Non-African American) 9.7 ml/min
[2022-04-18] MEDS: cefTRIAXone SODIUM 2,000 MG in DEXTROSE 5% 50 ML IV SCH ×2 (18:49→19:44)
[2022-04-18] MEDS: TAMSULOSIN HCL 0.4 MG CAP PO SCH (19:44)
[2022-04-19] MEDS: LACTATED RINGER'S 1,000 ML IV SCH ×3 (05:26→20:57)
[2022-04-19 07:36] LABS: Basophils # (auto) 0.01 K/uL (0-0.2); Basophils % (auto) 0.1 %; Eosinophils # (auto) 0.01 K/uL (0-0.50); Eosinophils % (auto) 0.1 %; Hematocrit (blood only) 30.4 % (42.0-52.0); Hemoglobin 10.4 g/dl (14.0-18.0); Immature Granulocytes # (auto) 0.04 K/uL (0.01-0.20); Immature Granulocytes % (auto) 0.4 %; Lymphocytes # (auto) 1.13 K/uL (1.2-3.4); Lymphocytes % (auto) 10.3 %; Mean Corpuscular Hemoglobin 28.2 pg (25.0-34.0); Mean Corpuscular Hgb Conc 34.2 g/dL (32.0-36.0); Mean Corpuscular Volume 82.4 fL (80.0-100.0); Mean Platelet Volume 11.1 fL (9.4-12.4); Monocytes # (auto) 0.61 K/uL (0.11-0.59); Monocytes % (auto) 5.5 %; Neutrophils # (auto) 9.22 K/uL (1.40-6.50); Neutrophils % (auto) 83.6 %; Platelet Count 133 K/uL (130-400); RDW Coefficient of Variation 12.7 % (11.5-14.5); RDW Standard Deviation 38.5 fL (36.4-46.3); Red Blood Count 3.69 M/uL (4.70-6.10); White Blood Count 11.02 K/ul (4.8-10.8)
[2022-04-19 08:05] LABS: Alanine Aminotransferase 11 U/L (7-52); Albumin Level 3.2 gm/dl (3.4-5.0); Alkaline Phosphatase 40 U/L (34-104); Anion Gap 7 (3-11); BUN Creatinine Ratio 14.5 (10-20); Bilirubin,Total 0.4 mg/dl (0.2-1.0); Blood Urea Nitrogen 60 mg/dl (6-23); Calcium 8.8 mg/dl (8.5-10.1); Carbon Dioxide 23 mmol/L (21-32); Chloride 108 mmol/L (98-107); Est GFR (African American) 15.3 ml/min; Est GFR (Non-African American) 13.2 ml/min; Globulin 3.1 gm/dl (2.5-4.0); Glucose 126 mg/dl (70-99(Fasting)); Sodium 138 mmol/L (136-145); Total Protein 6.3 gm/dl (6.0-8.3)
[2022-04-19] MEDS: ROSUVASTATIN CALCIUM 5 MG TAB PO SCH (09:15)
[2022-04-19] MEDS: POLYETHYLENE (MIRALAX) 17 GM PACK PO SCH ×2 (09:15→20:56)
[2022-04-19] MEDS: FINASTERIDE 5 MG TAB PO SCH (09:15)
[2022-04-19 09:32] LABS: Potassium 3.7 mmol/L (3.5-5.1)
--- NOTE | 2022-04-19 09:41 | Urology Progress Note ---
Date of Service April 19, 2022 Assessment & Plan (1) Hydronephrosis: (2) Benign localized prostatic hyperplasia with lower urinary tract symptoms (LUTS): (3) Bladder stones: (4) SHOAIB (acute kidney injury): Plan: - Pt POD#1 s/p cystoscopy with irrigation of bladder and bilateral retrograde pyelogramsand bilateral ureteral stent placement - Subjectively doing well - Afebrile, lab work reviewed - creatinine trending down - 4.13, WBC 11.02 - continue to trend labs - Urine culture pending - continue broad-spectrum antibiotics and follow culture - Tolerating bilateral ureteral stents with minimal bother - Mancilla patent and draining appropriately - yellow urine with some blood tinged sediment - Maintain catheter for maximum drainage, recommend discharge with Mancilla catheter - Continue supportive care and management per primary team - Plan for urology follow-up after discharge to discuss surgery for bladder stone removal and resection of the prostate - Discussed follow-up plan with patient and [id number] at length yesterday, all questions answered - will sign off Admission and Anticipated Discharge Date Admission Date: April 17, 2022 Subjective Patient seen and examined at bedside this morning. He is awake, alert and sitting up in chair eating breakfast. He denies flank or abdominal pain. No nausea or vomiting. Mancilla patent and draining yellow urine with slight red tinge/sediment. No fever or chills. Review of Systems Constitutional: as per Subjective / HPI Gastrointestinal: as per Subjective / HPI Genitourinary: + as per Subjective / HPI Physical Exam Constitutional: well developed and well nourished; no acute distress and not ill appearing Respiratory: normal respiratory effort; no respiratory distress and no labored breathing Gastrointestinal (Abdomen): Inspection/Auscultation: abdomen normal to in spection; abdomen not distended Neurologic: moves all extremities and awake Psychiatric: Orientation: alert and oriented x 3 Genitourinary: Mancilla patent draining yellow urine with slight red tinge/sediment Results & Data ([facility]) Vital Signs (Past 12 Hours) Vital Signs Temp Pulse Resp BP Pulse Ox O2 Del Method 04/19/22 09:13 37.1 C 67 16 130/75 94 Room Air PG Care Time/CCT Total # of Minutes Spent Total Time Spent with Patient: Total time spent is greater than 50% in coordination of care (as documented) at patient's floor/unit and/or counseling patient: Coding Level of Care Code 72879 SUB INP/OBS CARE Diagnoses Hydronephrosis N13.30 Hydronephrosis type: unspecified Benign localized prostatic hyperplasia with lower urinary tract symptoms (LUTS) N40.1 Bladder stones N21.0 SHOAIB (acute kidney injury) N17.9 (1) Hydronephrosis Hydronephrosis type: unspecified Qualified Code(s): N13.30 - Unspecified hydronephrosis
[2022-04-19] MEDS: cefTRIAXone SODIUM 2,000 MG in DEXTROSE 5% 50 ML IV SCH (18:24)
[2022-04-19] MEDS: TAMSULOSIN HCL 0.4 MG CAP PO SCH (20:55)
--- NOTE | 2022-04-19 21:59 | Hospitalist Progress Note ---
Date of Service April 19, 2022 Assessment & Plan (1) SHOAIB (acute kidney injury): Plan: 2nd to obstructive uropathy from numerous bladder stones, BPH, urethral orifice inflammation, etc. POD #2 s/p cystoscopy with b/l ureteral stent placement. FeNa 4.3 c/w obstructive uropathy. u/a possibly c/w UTI - urine cx was sent after abx started - has returned negative. [id number] continue abx for now. cont rocephin - likely can convert to PO abx tomorrow. cont finasteride cont flomax cont IVF repeat BMP in am appreciate urology assistance will need Rx of bladder stones & BPH w/ TURP after discharge to prevent recurrent obstruction keep mckeon at discharge (2) Bladder stones: Plan: numerous recurrent has had intervention on such in the past will need definitive Rx post-d/c by [facility] keep mckeon (3) Hydronephrosis: Plan: b/l s/p ureteral stents yesterday by [facility] see #1 above (4) Hyperlipidemia: Plan: cont statin (5) Benign localized prostatic hyperplasia with lower urinary tract symptoms (LUTS): Plan: cont dual therapy with finasteride and flomax cont mckeon will need TURP in near future Plan DVT proph - start heparin SC for DVT proph daughter and son extensively updated at bedside Admission and Anticipated Discharge Date Admission Date: April 17, 2022 Subjective had 3 stools today after not having had any in several days had regular food today for first time in a while and did well with such overall feels good no abd pain no dyspnea son, daughter at bedside urine is clearing in mckeon bag Review of Systems Review of Systems: gen - no fever cv - no orthopnea pulm - no dyspnea or cough GI - no abd pain, nausea or emesis Physical Exam Physical Exam: gen - NAD, looks good today mouth - MMM neck - no JVD heart - RRR, s1 s2, no murmur lungs - CTA b/l abd - soft, NT, ND, BS+ ext - no edema, pulses 2+ b/l psych - awake/alert/oriented Results & Data Results & Data ([facility]) Vital Signs (Past 12 Hours) Vital Signs Temp Pulse Resp BP Pulse Ox O2 Del Method 04/19/22 21:00 36.9 C 61 18 115/70 94 Room Air 04/19/22 19:42 Room Air 04/19/22 14:50 36.4 C L 68 18 117/67 95 Room Air Laboratory Results Laboratory Results - last 24 hr 04/19/22 04/19/22 04/19/22 06:50 06:50 08:43 WBC 11.02 H RBC 3.69 L Hgb 10.4 L Hct 30.4 L MCV 82.4 MCH 28.2 MCHC 34.2 RDW Std Deviation 38.5 RDW Coeff of Lauren 12.7 Plt Count 133 MPV 11.1 Immature Gran % (Auto) 0.4 Neut % (Auto) 83.6 Lymph % (Auto) 10.3 [place] % (Auto) 5.5 Eos % (Auto) 0.1 Baso % (Auto) 0.1 Neut # (Auto) 9.22 H Lymph # (Auto) 1.13 L [place] # (Auto) 0.61 H Eos # (Auto) 0.01 Baso # (Auto) 0.01 Immature Gran # (Auto) 0.04 Sodium 138 Potassium TNP 3.7 Chloride 108 H Carbon Dioxide 23 Anion Gap 7 BUN 60 H Creatinine 4.13 H D Est Cr Clr Drug Dosing 14.0 Est GFR ( Amer) 15.3 Est GFR (Non-Af Amer) 13.2 BUN/Creatinine Ratio 14.5 Glucose 126 H Calcium 8.8 Total Bilirubin 0.4 AST TNP 24 ALT 11 Alkaline Phosphatase 40 Total Protein 6.3 Albumin 3.2 L Globulin 3.1 Albumin/Globulin Ratio 1.0 PG Care Time/CCT Total # of Minutes Spent Total Time Spent with Patient: Total time spent is greater than 50% in coordination of care (as documented) at patient's floor/unit and/or counseling patient: Coding Level of Care Code 16491 SUB INP/OBS CARE 2/35MIN Diagnoses SHOAIB (acute kidney injury) N17.9 Bladder stones N21.0 Hydronephrosis N13.30 Hydronephrosis type: unspecified Hyperlipidemia E78.5 Benign localized prostatic hyperplasia with lower urinary tract symptoms (LUTS) N40.1 (3) Hydronephrosis Hydronephrosis type: unspecified Qualified Code(s): N13.30 - Unspecified hydronephrosis
[2022-04-20] MEDS: LACTATED RINGER'S 1,000 ML IV SCH ×2 (07:01→14:57)
[2022-04-20 09:16] LABS: Basophils # (auto) 0.04 K/uL (0-0.2); Basophils % (auto) 0.6 %; Eosinophils # (auto) 0.14 K/uL (0-0.50); Eosinophils % (auto) 1.9 %; Hematocrit (blood only) 31.1 % (42.0-52.0); Hemoglobin 10.4 g/dl (14.0-18.0); Immature Granulocytes # (auto) 0.04 K/uL (0.01-0.20); Immature Granulocytes % (auto) 0.6 %; Lymphocytes # (auto) 1.45 K/uL (1.2-3.4); Lymphocytes % (auto) 19.9 %; Mean Corpuscular Hemoglobin 27.7 pg (25.0-34.0); Mean Corpuscular Hgb Conc 33.4 g/dL (32.0-36.0); Mean Corpuscular Volume 82.9 fL (80.0-100.0); Mean Platelet Volume 11.2 fL (9.4-12.4); Monocytes # (auto) 0.55 K/uL (0.11-0.59); Monocytes % (auto) 7.6 %; Neutrophils # (auto) 5.05 K/uL (1.40-6.50); Neutrophils % (auto) 69.4 %; Platelet Count 122 K/uL (130-400); RDW Coefficient of Variation 12.9 % (11.5-14.5); RDW Standard Deviation 39.2 fL (36.4-46.3); Red Blood Count 3.75 M/uL (4.70-6.10); White Blood Count 7.27 K/ul (4.8-10.8)
[2022-04-20 09:32] LABS: BUN Creatinine Ratio 18.2 (10-20); Calcium 8.5 mg/dl (8.5-10.1); Creatinine Clr Calc Pharmacy 22.4 ml/min; Est GFR (Non-African American) 23.3 ml/min; Potassium 3.7 mmol/L (3.5-5.1)
[2022-04-20] MEDS: ROSUVASTATIN CALCIUM 5 MG TAB PO SCH (10:11)
[2022-04-20] MEDS: FINASTERIDE 5 MG TAB PO SCH (10:11)
[2022-04-20] MEDS: POLYETHYLENE (MIRALAX) 17 GM PACK PO SCH ×2 (10:12→21:59)
[2022-04-20] MEDS: CEFDINIR 300 MG CAP PO SCH (21:07)
[2022-04-20] MEDS: TAMSULOSIN HCL 0.4 MG CAP PO SCH (21:08)
--- NOTE | 2022-04-20 21:13 | Hospitalist Progress Note ---
Date of Service April 20, 2022 Assessment & Plan (1) SHOAIB (acute kidney injury): Plan: 2nd to obstructive uropathy from numerous bladder stones, BPH, urethral orifice inflammation, etc. POD #3 s/p cystoscopy with b/l ureteral stent placement. FeNa 4.3 c/w obstructive uropathy. IMPROVING nicely -- Peak Cr 6 Today - Cr 2.58 u/a possibly c/w UTI - urine cx was sent after abx started - has returned negative. [id number] continue abx for now. previously on rocephin - now on oral cefdinir. cont finasteride cont flomax cont IV fluids but lower fluid rate repeat BMP in am appreciate urology assistance will need Rx of bladder stones & BPH w/ TURP after discharge to prevent recurrent obstruction keep mckeon at discharge (2) Bladder stones: Plan: numerous recurrent has had intervention on such in the past will need definitive Rx post-d/c by [facility] keep mckeon (3) Hydronephrosis: Plan: b/l s/p ureteral stents yesterday by [facility] see #1 above (4) Hyperlipidemia: Plan: cont statin (5) Benign localized prostatic hyperplasia with lower urinary tract symptoms (LUTS): Plan: cont dual therapy with finasteride and flomax cont mckeon will need TURP in near future Plan DVT proph - heparin SC family updated again at bedside can likely dc home tomorrow if Cr is 2 or less Admission and Anticipated Discharge Date Admission Date: April 17, 2022 Subjective patient w/o any new complaints feels good eating well ambulating no abd pain, back pain, nausea or emesis Review of Systems Review of Systems: gen - no fevers/chills cv - chest pain pulm - no dyspnea Physical Exam Physical Exam: gen - NAD, looks well mouth - MMM neck - no JVD heart - RRR, s1 s2, no murmur lungs - CTA b/l abd - soft, NT, ND, BS+ ext - no edema, pulses 2+ b/l Results & Data Results & [facility] ([facility]) Vital Signs (Past 12 Hours) Vital Signs Temp Pulse Resp BP Pulse Ox O2 Del Method 04/20/22 20:17 36.8 C 69 18 139/78 96 Room Air 04/20/22 15:18 37.3 C 69 14 128/77 94 Room Air 04/20/22 11:07 37.4 C 68 135/75 94 Room Air 04/20/22 10:01 Room Air Laboratory Results Laboratory Results - last 24 hr 04/20/22 04/20/22 08:36 08:36 WBC 7.27 RBC 3.75 L Hgb 10.4 L Hct 31.1 L MCV 82.9 MCH 27.7 MCHC 33.4 RDW Std Deviation 39.2 RDW Coeff of Lauren 12.9 Plt Count 122 L MPV 11.2 Immature Gran % (Auto) 0.6 Neut % (Auto) 69.4 Lymph % (Auto) 19.9 [place] % (Auto) 7.6 Eos % (Auto) 1.9 Baso % (Auto) 0.6 Neut # (Auto) 5.05 Lymph # (Auto) 1.45 [place] # (Auto) 0.55 Eos # (Auto) 0.14 Baso # (Auto) 0.04 Immature Gran # (Auto) 0.04 Sodium 141 Potassium 3.7 Chloride 109 H Carbon Dioxide 28 Anion Gap 4 BUN 47 H Creatinine 2.58 H D Est Cr Clr Drug Dosing 22.4 Est GFR ( Amer) 27.0 Est GFR (Non-Af Amer) 23.3 BUN/Creatinine Ratio 18.2 Glucose 93 Calcium 8.5 PG Care Time/CCT Total # of Minutes Spent Total Time Spent with Patient: Total time spent is greater than 50% in coordination of care (as documented) at patient's floor/unit and/or counseling patient: Coding Level of Care Code 34894 SUB INP/OBS CARE 03/15MIN Diagnoses SHOAIB (acute kidney injury) N17.9 Bladder stones N21.0 Hydronephrosis N13.30 Hydronephrosis type: unspecified Hyperlipidemia E78.5 Benign localized prostatic hyperplasia with lower urinary tract symptoms (LUTS) N40.1 (3) Hydronephrosis Hydronephrosis type: unspecified Qualified Code(s): N13.30 - Unspecified hydronephrosis
[2022-04-20] MEDS: HEPARIN SOD 5,000 UNIT/0.5 ML VIAL SQ SCH (21:58)
[2022-04-21] MEDS: LACTATED RINGER'S 1,000 ML IV SCH (00:47)
[2022-04-21 07:37] LABS: Hematocrit (blood only) 31.7 % (42.0-52.0); Hemoglobin 10.5 g/dl (14.0-18.0); Mean Corpuscular Hemoglobin 27.9 pg (25.0-34.0); Mean Corpuscular Hgb Conc 33.1 g/dL (32.0-36.0); Mean Corpuscular Volume 84.3 fL (80.0-100.0); Mean Platelet Volume 11.2 fL (9.4-12.4); Platelet Count 126 K/uL (130-400); RDW Coefficient of Variation 12.7 % (11.5-14.5); RDW Standard Deviation 39.1 fL (36.4-46.3); Red Blood Count 3.76 M/uL (4.70-6.10); White Blood Count 8.08 K/ul (4.8-10.8)
[2022-04-21 08:03] LABS: Calcium 8.6 mg/dl (8.5-10.1); Creatinine Clr Calc Pharmacy 28.1 ml/min; Est GFR (African American) 35.7 ml/min; Est GFR (Non-African American) 30.8 ml/min; Potassium 3.4 mmol/L (3.5-5.1)
[2022-04-21] MEDS: CEFDINIR 300 MG CAP PO SCH (08:43)
[2022-04-21] MEDS: FINASTERIDE 5 MG TAB PO SCH (08:44)
[2022-04-21] MEDS: ROSUVASTATIN CALCIUM 5 MG TAB PO SCH (08:44)
[2022-04-21] MEDS: HEPARIN SOD 5,000 UNIT/0.5 ML VIAL SQ SCH (08:46)
[2022-04-21] MEDS ORDERED: POTASSIUM CHLORIDE CRTAB 20 MEQ TABCR PO STA ×2 (10:24→12:56)
[2022-04-21] MEDS: POLYETHYLENE (MIRALAX) 17 GM PACK PO SCH (10:30)
--- NOTE | 2022-04-26 10:38 | Discharge Summary ---
Date of Service date of admission - April 17, 2022 date of discharge - April 21, 2022 Admission HPI Per Admitting Provider Patient is a 76 yo male with PMHx of hyperlipidemia, bladder stones, and BPH who presented to the hospital due to n/v, abd pain, and urinary retention. Patient h as hx of bladder stones requiring prior open lithalopaxy w/ removal of 80 bladder calculi in August 2020. He has been following with urology (last visit 11/23/21) and at that time, plan was for ? future TURP due to his BPH w/ LUTS. Patient presented to the ER today due to nausea/vomiting x3 days, progressive abdominal distension x2 days, urinary retention x2 days, and constipation x2 days. He also reports associated decreased appetite. Patient denies fever, chills, CP, SOB, [place], lightheadedness, dizziness, LE swelling, focal weakness, or any other symptoms. In the ER -- Labs reveal: WBC 14.71, hgb 12.6, hct 36.9, Na 135, BUN 48, Cr 5.8 CT Abd/Pelvis findings include: Moderate b/l hydronephrosis w/ numerous large urinary bladder calculi (measuring up to 3.7 cm). Prostamegaly w/ findings sugg estive of chronic bladder outlet obstruction. Hyperdense material within the mid right ureter measuring up to 1.8cm in length. Meds/IVF received: Zofran 4mg IV, NSS 2L, and Ceftriaxone 2mg Principal Diagnosis 1. acute kidney injury - obstructive in nature; discharge Cr 2, peak Cr 6. 2. bladder stones. 3. BPH - severe. 4. suspected UTI. 5. b/l hydronephrosis 2nd to #2, #3 - s/p b/l ureteral stent placement by Dr Stefan Meier Discharge Exam gen - NAD, looks well mouth - MMM neck - no JVD heart - RRR, s1 s2, no murmur lungs - CTA b/l abd - soft, NT, ND, BS+ ext - no edema, pulses 2+ b/l Discharge Data Allergies Allergy/AdvReac Type Severity Reaction Status Date / Time No Known Allergies Allergy Verified 04/26/22 08:59 Consultations [facility] Procedures Performed Operation Date: 04/17/22 23:00 Actual Procedures p Ureteral Stent Insertion(Bilateral) - River Meier DO Ordered Studies Retrograde Pyelogram 04/17/22 00:00 FL retrograde includes kub CLINICAL HISTORY: BILATERAL URETERAL STENTS COMPARISON STUDY: Abdomen and pelvis CT 04/17/2022. FLUOROSCOPY TIME: 50 seconds. FLUOROSCOPY IMAGES: 3 Ka,r: 12.4 mGy FINDINGS: Retrograde opacification of bilateral renal collecting systems with placement of bilateral ureteral stents. The ureteral stents appear and good position. IMPRESSION: Fluoroscopic assistance as above. ACT 112: Negative or not required by law. Electronically signed by: Etienne Henley M.D. 04/18/2022 8:59 AM Abdomen/Pelvis CT 04/17/22 17:[address] WITHOUT CONTRAST CT DOSE: 402.04 mGy.cm HISTORY: Acute generalized abdominal pain abdominal pa TECHNIQUE: Multiaxial CT images of the abdomen and pelvis were performed without contrast. A dose lowering technique was utilized adhering to the principles of ALARA. COMPARISON STUDY: CT 10/12/2019 FINDINGS: Mild cardiomegaly. Trace left and small right pleural effusions with mild bibasilar atelectasis. No pneumatosis or pneumoperitoneum. The unenhanced spleen, pancreas, contracted gallbladder and adrenal glands are unremarkable. Mild hepatic steatosis. There are a few nonobstructing calculus of the right kidney measuring up to 5 mm. 9 mm nonobstructing calculus of the inferior pole left kidney. Moderate bilateral hydroureteronephrosis. Hyperdense material within the mid right ureter suggestive of a column of stone fragments measures up to 1.8 cm in length. No left ureteral calculi identified. Partially decompressed urinary bladder with wall thickening and perivesicular stranding. Numerous large urinary bladder calculi are again noted measuring up to 3.7 cm. Prostamegaly. Small fat filled left inguinal hernia. No abdominal aortic aneurysm or lymphadenopathy. No bowel obstruction or bowel wall thickening. Moderate fecal retention of the right hemicolon. Nonvisualization of the appendix. Unremarkable soft tissues. No acute fracture. Degenerative changes of the spine, pelvis and hips. IMPRESSION: 1. Moderate bilateral hydronephrosis with numerous large urinary bladder calculi redemonstrated. 2. Prostamegaly with findings suggestive of chronic bladder outlet obstruction. Correlate with urinalysis to exclude cystitis. 3. Hyperdense material within the mid right ureter measuring up to 1.8 cm in length suggestive of a column of stone fragments. 4. Trace left and small right pleural effusions. 5. No bowel obstruction or bowel wall thickening. ACT 112: Negative or not required by law. The above report was generated using voice recognition software. It may contain grammatical, syntax or spelling errors. Electronically signed by: John Rios M.D. 04/17/2022 5:42 PM Hospital Course (1) SHOAIB (acute kidney injury): Patient presented with severe acute kidney injury. This was 2nd to obstructive uropathy from numerous bladder stones, BPH, ureteral orifice inflammation, etc. He underwent cystoscopy with b/l ureteral stent placement by Dr River Meier. FeNa 4.3 c/w obstructive uropathy. Following mckeon placement and b/l ureteral stent placement his creatinine improved nicely while here. Peak Cr was 6, improving to 2 on day of discharge. During his entire stay he was maintained on IV fluids. He was maintained on finasteride and flomax as well. At discharge he will continue mckeon catheter. He will need a repeat BMP shortly after discharge to ensure stability of creatinine. He will have close f/u with [facility] to discuss TURP and bladder stone removal. (2) Bladder stones: numerous recurrent has had intervention on such in the past will need definitive Rx post-d/c by [facility] admission u/a was suggestive of UTI but urine culture was negative [id number] he was maintained on IV antibiotics while here and transitioned to oral cefdinir later in the stay at discharge he will complete 3 more days of oral cefdinir (3) Hydronephrosis: b/l s/p ureteral stents by [facility] findings during cystoscopy - "Severe bilateral hydronephrosis with hydroureter. Severe edema of base of bladder with left side completely covered in bullous edema and bilateral ureteral orifices swollen and edematous. Numerous massive stones of bladder. Large amount of debris irrigated free." (4) Benign localized prostatic hyperplasia with lower urinary tract symptoms (LUTS): cont dual therapy with finasteride and flomax cont mckeon will need TURP in near future by [facility] he was given mckeon teaching at discharge (5) Hyperlipidemia: cont statin Plan was seen by PT and cleared for discharge home Total Time Total Time Spent Total Time Spent (In Minutes): 25 Discharge Plan Discharge Items Patient Disposition: Home - Self-Care Reason For Visit: SHOAIB, BLADDER STONES Discharge Diagnosis: 1. acute kidney failure due to urinary obstruction from bladder stones, enlarged prostate, etc. - resolving/resolved 2. multiple large bladder stones 3. enlarged prostate ("BPH") Activity: As commented below Activity Comment: light activities including walking only; no heavy exertional activities Non-emergency contact: Primary Care Provider and Urologist Call non-emergency contact if: you have any medication questions, your symptoms worsen, your pain is not controlled, your pain is worsening, your pain is unusual for you and you have a fever Follow-up/Referrals: Ghazala Snyder CRNP [Nurse Practitioner] - 04/24/22 3:00 pm Tian Bonilla DO [Primary Care Provider] - Diet: Regular Addtl Attending Provider Instructions: Mr Sagastume, You were hospitalized due to acute kidney failure/acute kidney injury. There are many causes of acute kidney failure. In your case your acute kidney failure was caused by blockage/obstruction of the urinary tract. The urinary tract was obstructed as a result of numerous, large bladder stones in the bladder; enlarged prostate; as well as swelling and inflammation of your ureters. When the urinary tract is blocked urine cannot flow through the bladder in a normal fashion. Thus, urine "backs up" and causes swelling of the ureters and kidneys. The final result is that the creatinine, or kidney number in the blood, rises rapidly. Your peak creatinine level was 6, improving to 2 on 04/21/22. The kidney failure has resolved. Your baseline, normal creatinine level is about 1. Over the next week or two the creatinine will likely fully return to normal. You improved with having stents placed in your ureters as well as having a mckeon catheter placed into the bladder. You also received IV fluids and IV - then oral - antibiotics while here. Recommendations - 1. drain the mckeon bag as needed day to day. 2. take cefdinir antibiotic - 300mg once daily x 3 days starting 04/22/22. 3. tylenol IS ok for pain; you can take 1000mg every 6 hours as needed for pain, maximum 3000mg in 24 hours. 4. PLEASE AVOID ASPIRIN, MOTRIN, IBUPROFEN, NAPROSYN, ALLEVE, AND ANY OTHER ANTI-INFLAMMATORY PILL. 5. please drink at least 2000cc of fluid over a 24-hour period of keep your urinary tract flushed. Water is best. 6. you may see blood in the catheter at times. As long as it is mild and intermittent there is nothing to do for this. However, if the urine becomes very bloody (dark red or koch red), has clots, etc please let [facility] know right away. Follow-up - see [facility] on Monday 04/24 as scheduled Have a blood draw on Monday 04/24 or Tuesday 04/25 - this can be done at [facility], the main hospital lab, etc You do not need to be fasting for the blood draw Return to [facility] if - * you have fevers over 100 degrees * you have large amounts of blood or clots in your mckeon bag * you are having any problems with the mckeon catheter (it becomes blocked, no urine is coming out into the bag, etc) * you have worsening abdominal pain or back pain * you develop severe diarrhea * any other concerns It was our pleasure to care for you! Dr Jay Pending Studies at Discharge: No Stand-Alone Forms: [facility], Smoking Cessation Medications and DC Order Prescriptions: Continued rosuvastatin [Crestor] 5 mg tablet 5 mg PO DAILY Qty: 90 3RF saw palmetto 450 mg capsule 450 mg PO DAILY Rx Instructions: give with food (meal/snack) tamsulosin 0.4 mg capsule 0.4 mg PO HS Qty: 90 3RF Rx Instructions: Take one capsule at bedtime. finasteride 5 mg tablet 5 mg PO DAILY Qty: 90 3RF Patient Comments: 1 PM Centrum Complete 18-400 mg-mcg Tablet 1 tab PO QAM Discharge Orders: Discharge Order (Routine); Ordered 04/21/22 Ordered By: Zachariah Cruz/Other Patient Handouts: Urinary Catheter Bag Empty Clean, Leg Bag Care Dc, ED Mckeon Catheter, Care Admission Data Admit Date/Time: 04/17/22 19:24 Attending Provider: Zachariah Jay Admit Provider: Zachariah Perez Primary Care Provider: Tian Bonilla Other Providers: Zachariah Perez ; River Meier Other Interventions: Discharge Summary Assessment (RN) Last Done: 04/21/22 14:30 Coding Level of Care Code 04598 IN/OBS DISCH 30 MIN/LESS Diagnoses SHOAIB (acute kidney injury) N17.9 Bladder stones N21.0 Hydronephrosis N13.30 Hydronephrosis type: unspecified Benign localized prostatic hyperplasia with lower urinary tract symptoms (LUTS) N40.1 Hyperlipidemia E78.5
== END 2022-04-21 14:58 | disposition home or self-care (01) | DRG 660 ==
LOC: ED 15:30 → SUATTDRO 19:24 → 3W 19:24

== ENCOUNTER 2022-05-02 09:44 | Inpatient (IN) ==
--- NOTE | 2022-04-26 09:50 | Anesthesiology Consultation ---
Date of Service April 26, 2022 Assessment & Plan (1) Encounter for pre-operative examination: Plan - COVID screening: Per vulnerability assessment analyst on 04/26/2022: Travel screen negative, no known COVID-19 positive contacts or current COVID-19 related symptoms in past 2 weeks. To surgeon's discretion if preop COVID testing is needed. Chart Review Chart Review: Acceptable Risk for Surgery and Patient NOT seen in Pre Admission Testing History Surgery Operation Date: 05/02/22 09:50 Proposed Procedures p Transurethral Resection Prostate, Open Lithalopaxy - Bebo Muñoz MD Height/Weight Height: 5 ft 3 in Weight: 68.039 kg Allergies Allergy/AdvReac Type Severity Reaction Status Date / Time No Known Allergies Allergy Verified 04/26/22 08:59 Medications Home Medications Medication Instructions Recorded Confirmed Last Taken multivitamin-ferrous 1 tab PO QAM 01/13/19 04/26/22 07/10/21 fumarate-folic acid 18 mg-400 mcg tablet (Centrum Complete) saw palmetto 450 mg capsule 450 mg PO DAILY 11/29/20 04/26/22 07/10/21 finasteride 5 mg tablet 5 mg PO DAILY #90 tabs 05/18/21 04/26/22 07/10/21 tamsulosin 0.4 mg capsule 0.4 mg PO HS #90 caps 05/18/21 04/26/22 07/10/21 rosuvastatin 5 mg tablet (Crestor) 5 mg PO DAILY #90 tabs 01/10/22 04/26/22 Unknown Past Medical History Medical History CKD (chronic kidney disease) Enlarged prostate History of bladder stone Hyperlipidemia Past Family History Family History Other No family history of adverse response to anesthesia No pertinent family history Denies family history of Ovarian cancer Prostate cancer Breast cancer Lung cancer Colorectal cancer Past Surgical History Surgical History H/O colonoscopy 06/2021 no further testing History of cataract surgery LEFT Social History Smoking Status: Never smoker Do You Dip or Chew Tobacco: No Hx Alcohol Use: No Hx Substance Use: No substance use type: does not use Lab Results Anesthesia Preop Results Results Anesthesia Widget: WBC 9.41 K/ul (4.8-10.8) 04/24/22 Hgb 13.0 g/dl (14.0-18.0) L 04/24/22 Hct 39.7 % (42.0-52.0) L 04/24/22 Plt 217 K/uL (130-400) 04/24/22 Na 137 mmol/L (136-145) 04/24/22 K 3.8 mmol/L (3.5-5.1) 04/24/22 Cl 102 mmol/L (98-107) 04/24/22 CO2 26 mmol/L (21-32) 04/24/22 BUN 31 mg/dl (6-23) H 04/24/22 Creat 2.07 mg/dl (0.6-1.4) H 04/24/22 Glucose Level 85 mg/dl (70-99(Fasting)) 04/24/22 PT 11.0 Seconds (9.0-12.0) 04/17/22 PTT 25.5 Seconds (21.0-31.0) 04/17/22 INR 1.0 (0.9-1.1) 04/17/22 Urine Color Red 04/18/22 Urine Appearance Turbid (Clear) A 04/18/22 Urine pH 5.0 (4.5-7.5) 04/18/22 Urine Specific [place] 1.010 (1.000-1.030) 04/18/22 Urine Protein 3+ (Negative) H 04/18/22 Urine Glucose (UA) Negative (Negative) 04/18/22 Urine Ketones Negative (Negative) 04/18/22 Urine Blood 3+ (Negative) H 04/18/22 Urine Nitrite Positive (Negative) A 04/18/22 Urine Bilirubin Negative (Negative) 04/18/22 Urine Urobilinogen Negative (Negative) 04/18/22 Urine Leukocyte Esterase 2+ (Negative) H 04/18/22 Urine WBC (Auto) >30 /hpf (0-5) H 04/18/22 Urine RBC (Auto) >30 /hpf (0-4) H 04/18/22 Urine Hyaline Casts (Auto) 0 /lpf (0-5) 04/18/22 Urine Epithelial Cells (Auto) >30 /lpf (0-5) H 04/18/22 Urine Bacteria (Auto) Negative (Negative) 04/18/22 Urine Yeast Not Reportable 04/18/22 COVID-19 PCR NEGATIVE (Negative) 04/17/22 Testing Electrocardiogram Date: 04/17/22 NSR, rate 78 bpm Possible LA enlargement RBBB Chest X-Ray Date: 04/24/22 No lines and tubes are seen. The aorta is tortuous. The remainder of the cardiomediastinal silhouette is unremarkable. The lungs are clear. There is blunting of the costophrenic angle on the left and right. IMPRESSION: Blunting of the bilateral costophrenic angles may represent trace effusions or scarring. No acute abnormalities. Other Testing Abdomen pelvis CT 04/17/22 1. Moderate bilateral hydronephrosis with numerous large urinary bladder calculi redemonstrated. 2. Prostamegaly with findings suggestive of chronic bladder outlet obstruction. Correlate with urinalysis to exclude cystitis. 3. Hyperdense material within the mid right ureter measuring up to 1.8 cm in length suggestive of a column of stone fragments. 4. Trace left and small right pleural effusions. 5. No bowel obstruction or bowel wall thickening.
[~2022-05-02 09:44] MED LIST changes: +CIPROFLOXACIN / D5W 200 MG/100 ML BAG IV SCH; -CIPROFLOXACIN / D5W 400 MG/200 ML BAG IV SCH; -LR 15ML/HR IV SCH; +SODIUM CHLORIDE 0.9% 1000ML IV SCH
[2022-05-02] MEDS ORDERED: fentaNYL citrate PF 100 MCG/2 ML VIAL IV PRN (13:37)
[2022-05-02] MEDS ORDERED: ONDANSETRON INJ 2 MG/ML 2 ML VIAL IV PRN ×2 (13:37→18:32)
[2022-05-02] MEDS ORDERED: HYDROmorphone INJ 2 MG/ML SYR/VIAL IV PRN (13:37)
[2022-05-02] MEDS ORDERED: ePHEDrine sulfate 50 MG/ML AMP IV PRN (13:37)
[2022-05-02] MEDS ORDERED: ATROPINE SULFATE 0.1 MG/ML 10ML SYR IV PRN (13:37)
[2022-05-02] MEDS ORDERED: fentaNYL citrate PF 100 MCG/2 ML VIAL ONE ×2 (14:15→16:02)
--- NOTE | 2022-05-02 14:37 | History & Physical Bridge Note ---
Date of Service May 02, 2022 History & Physical Bridge Note I have examined the patient, reviewed the History & Physical and in the interval since the performance of the History & Physical I have noted the following changes of clinical significance: no changes noted
[2022-05-02] MEDS ORDERED: BUPIVACAINE 0.5 % 5 MG/1 ML MPF 30ML VIAL ONE (15:05)
[2022-05-02] MEDS ORDERED: LIDOCAINE 2% MPF LOCAL 5 ML VIAL INFIL ONE (15:10)
[2022-05-02] MEDS ORDERED: DEXAMETHASONE SOD INJ 4 MG/ML VIAL ONE (15:10)
[2022-05-02] MEDS ORDERED: PROPOFOL IV EMULSION 10 MG/ML 20 ML VIAL IV ONE (15:10)
[2022-05-02] MEDS ORDERED: VASOPRESSIN 20 UNIT/ML VIAL ONE (15:10)
[2022-05-02] MEDS ORDERED: ONDANSETRON INJ 2 MG/ML 2 ML VIAL ONE (15:10)
[2022-05-02] MEDS ORDERED: PHENYLEPHRINE HCL 10 MG/ML VIAL ONE (15:10)
--- NOTE | 2022-05-02 16:59 | Operative Report ---
PG Post Operative Report Pre & Post Diagnosis Operation Date: 05/02/22 11:35 Pre-Op Diagnosis: Bladder Stones, Benign Prostatic Hyperplasia, Acute Kidney Injury Post-Op Diagnosis: Bladder Stones, Benign Prostatic Hyperplasia, Acute Kidney Injury I identified the patient and participated in the time-out.: Yes Procedure Operation Date: 05/02/22 11:35 Actual Procedures p Transurethral Resection Prostate with Open Lithopaxy(Not Applicable) - Bebo Muñoz MD Surgeon Bebo Muñoz MD [employer] Bella Phoenix Estimated Blood Loss 10 Findings Consistent with Post-Op Diagnosis Specimens Bladder calculi Description of Procedure Following review of appropriate consents, the patient was transported operating suite. Upon arrival he received appropriate preoperative antibiotics in the form of Cipro. He was placed in dorsal lithotomy position and his abdominal wall was sterilely prepped and draped as was his genitals. A Mancilla catheter was inserted on the field. A low midline incision was marked. He has had an incision in the same area before and we utilized the scar to open. This incision was approximately 6 cm in length. After dissecting through superficial tissues I encountered my previously placed stitches. These Ethibond sutures were incised. The fascia was open and preperitoneal fat was dissected off of the anterior surface of the bladder. The peritoneum was not invaded. I then distended the bladder with a Mancilla catheter and normal saline. Stitches were placed at the caudal most and cephalad most aspect of my intended incision into the bladder. I dissected through the detrusor muscle and then bladder mucosa utilizing a Bovie electrocautery device. After draining the residual urine and irrigant from the bladder I was able to expand my incision to accommodate finger sweep and subsequently remove several large stones from the bladder. After confirming that all large stones been removed I began closure of my cystotomy. This was conducted in 2 layers. 3-0 chromic was utilized to reapproximate the mucosa followed by a 0 Vicryl imbricating stitch to buttress this closure. A AYESHA drain was placed through the left lateral aspect of the incision and under the fascia. The fascia was reapproximated with a running 0 Vicryl. Drain was sutured in place with a 2-0 nylon. The incision itself was irrigated and then closed with silva. At that time I concluded the open portion of the case and I turned my attention to resection of the prostate. I removed the indwelling Mancilla catheter and passed a 28 [place] resectoscope with 30 degree lens and visual obturator. Inspection revealed a healthy-appearing urethra. He has a large prostate with substantial lateral lobe hypertrophy and obstruction as well as intravesical intrusion. I did inspect the bladder and there were no retained stones. He has bilateral ureteral stents in position. The cystotomy was inspected and appeared to be appropriately approximated. There was no evidence of leakage through the AYESHA drain. I then utilized a button electrode to resect the obstructing elements of the prostate. I began with the left lateral lobe followed by the right lateral lobe. Particular care was taken to resect the intravesical portion of the prostate. I completed my resection by trimming apical tissues bilaterally. At the conclusion of the resection there was excellent hemostasis and a widely patent prostatic urethra. I removed by the bilateral ureteral stents. A new 22 [place] Mancilla catheter was inserted. The case was concluded. The previously evacuated stones were passed off the table for chemical analysis, there were no other specimens. Bella Phoenix assisted from incision to closure during the open portion of the case. I attest to the content of the Intraoperative Record and any orders documented therein. Any exceptions are noted below.
[2022-05-02] MEDS ORDERED: MoRPHine SULFATE 4 MG/ML 1 ML CARP\\VIAL IV PRN (18:32)
[2022-05-02] MEDS ORDERED: oxyCODONE HCL IR 5 MG TAB (IMMEDIATE RELEASE) PO PRN (18:32)
[2022-05-02] MEDS ORDERED: ACETAMINOPHEN 325 MG TAB PO PRN (18:32)
[2022-05-02] MEDS ORDERED: MoRPHine SULFATE 2 MG/ML CARP IV PRN (18:32)
--- NOTE | 2022-05-02 18:52 | Anesthesiology Progress Note ---
Date of Service May 02, 2022 Anesthesia Post Procedure Vital Signs Vital Signs: Temp Pulse Pulse Pulse Resp BP Pulse Ox 05/02/22 18:50 36.4 C L 82 14 112/73 96 05/02/22 18:24 36.2 C L 83 16 110/72 93 05/02/22 17:53 36.5 C 85 16 122/80 94 05/02/22 17:30 86 27 H 117/79 94 05/02/22 17:20 36.4 C L 88 20 116/84 93 05/02/22 17:10 87 19 120/82 95 05/02/22 17:00 83 16 116/81 94 05/02/22 16:50 36.9 C 72 16 109/80 96 05/02/22 10:09 37.1 C 98 H 20 136/85 97 O2 Del Method O2 Flow Rate 05/02/22 18:50 Room Air 05/02/22 18:24 Room Air 05/02/22 17:53 Room Air 05/02/22 17:30 Room Air 05/02/22 17:20 Room Air 05/02/22 17:10 Oxymask 4 05/02/22 17:00 Oxymask 6 05/02/22 16:50 Oxymask 10 05/02/22 10:09 Room Air Pain Intensity Bilateral Abdomen: Pain Intensity: 5 Transfer of Care Handoff Completed per policy Notes Mental Status: alert / awake / arousable Patient Amnestic to Procedure: Yes Nausea / Vomiting: adequately controlled Pain: adequately controlled Airway Patency, RR, SpO2: stable & adequate BP & HR: stable & adequate Hydration State: stable & adequate Anesthetic Complications: no major complications apparent
[2022-05-02 18:53] LABS: BUN Creatinine Ratio 16.4 (10-20); Calcium 8.8 mg/dl (8.5-10.1); Creatinine Clr Calc Pharmacy 34.4 ml/min; Est GFR (African American) 46.4 ml/min; Potassium 4.3 mmol/L (3.5-5.1)
[2022-05-02] MEDS: cefTRIAXone SODIUM 1,000 MG in DEXTROSE 5% AD-VAN 50 ML IV SCH (18:55)
[2022-05-02] MEDS: SODIUM CHLORIDE 0.9% 1000ML 1,000 ML IV SCH (18:55)
[2022-05-02 19:04] LABS: Hemoglobin 11.9 g/dl (14.0-18.0); Mean Corpuscular Hemoglobin 28.2 pg (25.0-34.0); Mean Corpuscular Hgb Conc 33.1 g/dL (32.0-36.0); Mean Corpuscular Volume 85.3 fL (80.0-100.0); Mean Platelet Volume 10.1 fL (9.4-12.4); Platelet Count 218 K/uL (130-400); RDW Standard Deviation 40.2 fL (36.4-46.3); Red Blood Count 4.22 M/uL (4.70-6.10); White Blood Count 16.42 K/ul (4.8-10.8)
[2022-05-02 19:28] LABS: Basophils # (auto) 0.05 K/uL (0-0.2); Basophils % (auto) 0.3 %; Eosinophils # (auto) 0.04 K/uL (0-0.50); Eosinophils % (auto) 0.2 %; Immature Granulocytes # (auto) 0.07 K/uL (0.01-0.20); Immature Granulocytes % (auto) 0.4 %; Lymphocytes # (auto) 0.98 K/uL (1.2-3.4); Monocytes # (auto) 0.25 K/uL (0.11-0.59); Monocytes % (auto) 1.5 %; Neutrophils # (auto) 15.03 K/uL (1.40-6.50); Neutrophils % (auto) 91.6 %
[2022-05-02] MEDS: oxyCODONE HCL IR 5 MG TAB (IMMEDIATE RELEASE) PO PRN (20:10)
[2022-05-02] MEDS: DOCUSATE SODIUM 100 MG CAP PO SCH (20:12)
[2022-05-02] MEDS ORDERED: TAMSULOSIN HCL 0.4 MG CAP PO SCH (21:00)
[2022-05-02] MEDS ORDERED: INFLUENZA VACCINE HIGH DOSE PF 65+ 0.7 ML SYR IM ONE (22:11)
[2022-05-03] MEDS: SODIUM CHLORIDE 0.9% 1000ML 1,000 ML IV SCH ×2 (00:52→16:40)
[2022-05-03] MEDS: oxyCODONE HCL IR 5 MG TAB (IMMEDIATE RELEASE) PO PRN ×2 (03:32→13:07)
[2022-05-03] MEDS ORDERED: ROSUVASTATIN CALCIUM 5 MG TAB PO SCH (09:00)
[2022-05-03] MEDS ORDERED: FINASTERIDE 5 MG TAB PO SCH (09:00)
--- NOTE | 2022-05-03 09:00 | Urology Progress Note ---
Date of Service May 03, 2022 Assessment & Plan (1) Benign localized prostatic hyperplasia with lower urinary tract symptoms (LUTS): (2) Bladder stones: Plan Status post open litholapaxy and TURP Doing well Ambulate now AYESHA removal before discharge home Discharge home later today or tomorrow Labs pending Bilateral stents were removed yesterday and I hope to see stability of his creatinine - no flank pain Admission and Anticipated Discharge Date Admission Date: May 02, 2022 Subjective Doing okay Modest pain Was ambulatory yesterday but has not walked yet this morning Urine with some blood but not drastic AYESHA serosanguineous Physical Exam Physical Exam: Incision dressed AYESHA serosanguineous Mancilla predominantly clear Constitutional: well developed and well nourished Respiratory: no respiratory distress Cardiovascular: Extremities: no pedal edema Gastrointestinal (Abdomen): Inspection/Auscultation: abdomen normal to inspection Results & Data ([facility]) Vital Signs (Past 12 Hours) Vital Signs Temp Pulse Resp BP Pulse Ox O2 Del Method 05/03/22 07:29 37.1 C 87 16 106/67 94 Room Air 05/03/22 02:18 37.1 C 86 16 101/66 96 Room Air 05/02/22 22:14 36.7 C 86 18 103/68 96 Room Air PG Care Time/CCT Total # of Minutes Spent Total Time Spent with Patient: Total time spent is greater than 50% in coordination of care (as documented) at patient's floor/unit and/or counseling patient: Coding Level of Care Code 78457 SUB INP/OBS CARE 2/35MIN Diagnoses Benign localized prostatic hyperplasia with lower urinary tract symptoms (LUTS) N40.1 Bladder stones N21.0
[2022-05-03] MEDS: DOCUSATE SODIUM 100 MG CAP PO SCH (09:01)
[2022-05-03 09:24] LABS: Basophils # (auto) 0.03 K/uL (0-0.2); Basophils % (auto) 0.2 %; Eosinophils # (auto) 0.01 K/uL (0-0.50); Eosinophils % (auto) 0.1 %; Hematocrit (blood only) 35.2 % (42.0-52.0); Hemoglobin 11.6 g/dl (14.0-18.0); Immature Granulocytes # (auto) 0.04 K/uL (0.01-0.20); Immature Granulocytes % (auto) 0.3 %; Lymphocytes # (auto) 0.97 K/uL (1.2-3.4); Lymphocytes % (auto) 6.9 %; Mean Corpuscular Hemoglobin 28.5 pg (25.0-34.0); Mean Corpuscular Volume 86.5 fL (80.0-100.0); Mean Platelet Volume 10.2 fL (9.4-12.4); Monocytes # (auto) 0.71 K/uL (0.11-0.59); Neutrophils % (auto) 87.5 %; Platelet Count 209 K/uL (130-400); RDW Coefficient of Variation 12.8 % (11.5-14.5); Red Blood Count 4.07 M/uL (4.70-6.10); White Blood Count 14.06 K/ul (4.8-10.8)
[2022-05-03 09:44] LABS: BUN Creatinine Ratio 16.3 (10-20); Calcium 8.5 mg/dl (8.5-10.1); Creatinine Clr Calc Pharmacy 35.5 ml/min; Est GFR (African American) 48.1 ml/min; Est GFR (Non-African American) 41.5 ml/min; Potassium 4.2 mmol/L (3.5-5.1)
[2022-05-03 14:45] VITALS: BP 125/73; PULSE 101; TEMP 98.2; O2SAT 95
[2022-05-03] MEDS: cefTRIAXone SODIUM 1,000 MG in DEXTROSE 5% AD-VAN 50 ML IV SCH (18:26)
--- NOTE | 2022-05-04 10:18 | Discharge Summary ---
Date of Service May 04, 2022 Admission HPI Per Admitting Provider Patient with BPH with obstruction, numerous bladder stones, and SHOAIB here for open lithalopaxy and TURP. Admission Exam Per Admitting Provider Physical Exam Constitutional well developed and well nourished; no acute distress and not ill appearing Eyes no eyelid abnormality ENMT Ears: no external ear abnormality Neck normal visual inspection and trachea midline Respiratory normal respiratory effort and able to speak in complete sentences; no respiratory distress and no audible wheezes Gastrointestinal (Abdomen) Inspection/Auscultation: abdomen normal to inspection; abdomen not distended Musculoskeletal Head/Neck/Chest: normocephalic and head atraumatic Moves all extremities without difficulty. Skin No visible rashes, lesions, or wounds noted. Neurologic moves all extremities and awake Psychiatric Orientation: alert, oriented x 3 and cooperative Affect: euthymic affect Principal Diagnosis Bladder stones, BPH with obstruction, SHOAIB Discharge Exam Constitutional well developed and well nourished; no acute distress Respiratory normal respiratory effort; no respiratory distress and no labored breathing Cardiovascular Extremities: no pedal edema Gastrointestinal (Abdomen) Inspection/Auscultation: abdomen normal to inspection; abdomen not distended Skin Surgical dressings C/D/I Neurologic moves all extremities and awake Genitourinary Mancilla intact and draining yellow urine with some maroon sediment Discharge Data Allergies Allergy/AdvReac Type Severity Reaction Status Date / Time No Known Allergies Allergy Verified 05/02/22 10:07 Procedures Performed Operation Date: 05/02/22 11:35 Actual Procedures p Transurethral Resection Prostate with Open Lithopaxy(Not Applicable) - Bebo Muñoz MD Hospital Course (1) Benign localized prostatic hyperplasia with lower urinary tract symptoms (LUTS): (2) Bladder stones: Plan Status post open litholapaxy and TURP Doing well Ambulate now AYESHA removal before discharge home Discharge home later today or tomorrow Labs pending Bilateral stents were removed yesterday and I hope to see stability of his creatinine - no flank pain Patient reassessed this afternoon. Patient progressing as expected. Pt ambulated earlier without difficulty. Tolerating diet. Mancilla draining clear yellow with some blood tinged/maroon sediment. He reports some blood leaked around catheter insertion site. Reassured him that this can be expected post operatively. He would like to further discuss discharge today vs tomorrow with his family. Expected clinical course reviewed. All questions answered. Contacted by patient's nurse that patient is ready for discharge today. Remove AYESHA drain prior to discharge. Home with Mancilla catheter. Discharge orders placed. Will arrange outpatient follow-up appointments. Total Time Total Time Spent Total Time Spent (In Minutes): 29 Discharge Plan Discharge Items Patient Disposition: Home - Self-Care Reason For Visit: Prostatic Hyperplasia with LUTS,Bladder Stones,SHOAIB Discharge Diagnosis: Prostatic hyperplasia with LUTS, bladder stones, SHOAIB Activity: Per Instructions section Lifting: No more than 10 pounds Bathing Comment: Okay to shower after discharge, no tub bath or soaking Sexual Activity: Wait until after follow-up appointment Exercise/Sports: Wait until after follow-up appointment Non-emergency contact: Surgeon and Urologist Call non-emergency contact if: your pain is not controlled, you have a fever, your temperature is above 101, your wound has increased redness, your wound has increased drainage and your wound pain has increased Follow-up/Referrals: Tian Bonilla DO [Primary Care Provider] - 05/12/22 11:30 am Diet: Carb Consistent or DM2 Addtl Attending Provider Instructions: Please take all medications as prescribed and keep all follow-ups as scheduled. Please call our office at [phone] with any questions, concerns or need to reschedule appointments for any reason. We are happy to assist you. Tips for your recovery at home: Dont be alarmed by brownish or reddish blood or clots in your urine. You may also notice some blood around the catheter. This is a result of the procedure. This may occur off and on for weeks to months after the procedure but should continue to improve. Drink plenty of fluids during the day (enough to keep your urine very light colored). This will help keep a healthy flow of urine. Do not lift >25 lbs until your followup Avoid constipation. Please use a stool softener (Colace) for the first two weeks after your procedure Be sure to finish the antibiotics as prescribed. If you go home with a catheter, please wash tubing where it enters your body twice daily with mild soap (Dove or Dial). Once your catheter is removed, expect some blood in your urine and some burning when you urinate. You should have an appointment to have this removed, if you do not please call our office to arrange. Mancilla Catheter or Suprapubic Catheter care: Keep the catheter well secured with either a leg back or leg strap with large bag. Empty your bag when it's about half full. You may notice some blood in the bag. This is normal after surgery and while the catheter is in place. Use mild soap (such as Dove or Dial) and water to wash the catheter and the head of your penis daily, or more frequently if needed. You may shower as normal. Please avoid tub baths or soaking until catheter removed and incisions well healed. Wearing sweat pants while you have the catheter is recommended, they will be more comfortable. Follow-up Your follow up appointments for having your catheter removed, and follow up with your physician are being arranged. If you have any questions regarding this, please contact our office. Call [facility] at [phone] right away if you have any of the following: Chest pain or trouble breathing (call 911 or go to the hospital) Fever of 101F or higher, uncontrolled vomiting Heavy bleeding, clots, or bright red blood from the catheter Catheter that falls out or stops draining Foul-smelling discharge from your catheter Redness, swelling, warmth, or increased pain at your incision site Drainage, pus, or bleeding from your incision Pending Studies at Discharge: Yes Studies:: stone analysis, pathology Stand-Alone Forms: My [facility], Pain - Opioid Pain Management, Smoking Cessation Medications and DC Order Prescriptions: New docusate sodium [Colace] 100 mg capsule 100 mg PO BID Qty: 60 0RF Rx Instructions: Take twice daily for 2 weeks, then as needed for constipation. oxycodone-acetaminophen [Percocet] 5-325 mg tablet 1 tab PO TID PRN (Reason: pain) Qty: 10 0RF ciprofloxacin HCl 250 mg tablet 250 mg PO BID Qty: 10 0RF Continued rosuvastatin [Crestor] 5 mg tablet 5 mg PO DAILY Qty: 90 3RF saw palmetto 450 mg capsule 450 mg PO DAILY Rx Instructions: give with food (meal/snack) tamsulosin 0.4 mg capsule 0.4 mg PO HS Qty: 90 3RF Rx Instructions: Take one capsule at bedtime. finasteride 5 mg tablet 5 mg PO DAILY Qty: 90 3RF Patient Comments: 1 PM Centrum Complete 18-400 mg-mcg Tablet 1 tab PO QAM Discharge Orders: Discharge Order (Routine); Ordered 05/03/22 Ordered By: Bella Cruz/Other Patient Handouts: TURP Home Recovery, ED Mancilla Catheter, Care Admission Data Admit Date/Time: 05/02/22 16:06 Attending Provider: Bebo Muñoz Admit Provider: Bebo Muñoz Primary Care Provider: Tian Bonilla Other Interventions: Discharge Summary Assessment (RN) Last Done: 05/03/22 15:17 Coding Level of Care Code 17594 IN/OBS DISCH 30 MIN/LESS Diagnoses Benign localized prostatic hyperplasia with lower urinary tract symptoms (LUTS) N40.1 Bladder stones N21.0
[2022-05-09 17:58] LABS: Component 2 DNR; Source BLADDER STONE
== END 2022-05-03 20:18 | disposition home or self-care (01) | DRG 713 ==
LOC: ASU 09:44 → OBSVTOIN 16:06 → INTOOBSV 16:06 → 3W 16:06